=== PATIENT | male | born 1975 | race Caucasian/White ===

== ENCOUNTER 2019-03-19 15:29 | Emergency (ER) | payer OTHER, SELFPAY ==
[2019-03-19 15:32] VITALS: BP 163/98; PULSE 89; RESP 20; TEMP 36; O2SAT 98; BMI 36.5
[2019-03-19] MEDS: SODIUM CHLORIDE 0.9% 1,000 ML 1000 ML IV ×2 (16:15→17:51)
[2019-03-19 16:49] LABS: Add Manual Diff / Slide Review NO; Basophils Absolute Auto 0 /uL (0-100); Basophils Percent Auto 0.9 % (0-2); Eosinophils Absolute Auto 100 /uL (0-450); Eosinophils Percent Auto 2.7 % (2-4); Hematocrit 46.1 % (41-53); Hemoglobin 16.1 g/dL (13.5-17.5); Lymphocytes Absolute Auto 1300 /uL (1100-4500); Lymphocytes Percent Auto 27.4 % (25-40); Mean Corpuscular HGB Conc 34.9 % (30-36); Mean Corpuscular Hemoglobin 31.1 PG (26-34); Mean Corpuscular Volume 89.1 fL (80-100); Monocytes Absolute Auto 500 /uL (0-900); Monocytes Percent Auto 9.8 % (3-14); Neutrophils Absolute Auto 2900 /uL (1500-7000); Neutrophils Percent Auto 59.2 % (50-75); Platelet Count 196 X10^3/uL (150-400); Red Blood Cell Count 5.18 X10^6/uL (4.5-5.9); Red Cell Distribution Width 12.7 % (11.6-14.8); White Blood Cell Count 4.8 X10^3/uL (4.5-11.0)
[2019-03-19 16:54] LABS: Alanine Aminotransferase 55 IU/L (21-72); Albumin 4.5 g/dL (3.5-5.0); Albumin Globulin Ratio 1.6 (1.0-2.8); Alkaline Phosphatase 79 U/L (38-126); Aspartate Aminotransferase 43 IU/L (17-59); BUN Creatinine Ratio 21.3 (6-22); Bilirubin Total 0.6 mg/dL (0.2-1.3); Blood Urea Nitrogen 17 mg/dL (9-20); Calcium 9.3 mg/dL (8.4-10.2); Carbon Dioxide 23 mmol/L (22-32); Chloride 100 mmol/L (98-107); Estimated Glomerular Filt Rate > 60.0 mL/min (>60); Globulin 2.9 g/dL (1.7-4.1); HEMOLYSIS 46 (0-50); Potassium 4.4 mmol/L (3.4-5.1); Sodium 134 mmol/L (137-145); Total Protein 7.4 g/dL (6.3-8.2)
[2019-03-19 16:58] LABS: Ketones (Beta-Hydroxybutyrate) 1.35 mmol/L (<0.27)
[2019-03-19 17:13] LABS: Glucose 493 mg/dL (70-100)
[2019-03-19 17:16] LABS: HCO3 VBG 22 mmol/L (23-28); Oxygen Saturation VBG 80 % (70-75); PCO2 VBG 39.9 mmHg (45-50); PO2 VBG 46 mmHg (35-45); Total CO2 VBG 23 mmol/L (24-29); pH VBG 7.35 (7.33-7.43)
[2019-03-19 17:17] LABS: Hemoglobin A1C% w Est Avg Glu 10.3 % (4.0-6.0)
[2019-03-19 17:28] LABS: Procalcitonin 0.05 ng/mL (<0.5)
[2019-03-19 18:49] VITALS: BP 159/89; PULSE 64; RESP 15; O2SAT 98
--- NOTE | 2019-03-19 19:57 | ED.GENADULT ---
HPI - General Adult <NAT Lynn-BC - Last Filed: 03/19/19 20:01> General Chief complaint: Diabetic Problem Stated complaint: elevated blood sugar told to go to ER Time Seen by Provider: 03/19/19 15:53 Source: patient Mode of arrival: ambulatory Limitations: no limitations History of Present Illness HPI narrative: The patient is a 43-year-old male current smoker with history of obesity who presents with a chief complaint of polyuria and polydipsia. He is concerned he has diabetes. He was seen by primary care provider today, who checked his fingerstick any was above 500 so he was sent to the emergency department. He states that for the past few months he has been feeling overall poorly, fatigue, concerned about his increased thirst and increased urination. He states his father has a history of type 2 diabetes in use concerned that he has the same. He denies any chest pain, shortness of breath, nausea vomiting diarrhea. He denies any visual deficit. Related Data Home Medications Medication Instructions Recorded Confirmed Lutein 1 tab PO DAILY 03/19/19 03/20/19 acetaminophen 500 mg tablet 1,000 mg PO Q6H PRN 03/19/19 03/20/19 multivitamin tablet 1 tab PO DAILY 03/19/19 03/20/19 Previous Rx's Medication Instructions Recorded Glucometer #1 ea 03/20/19 Lancets #180 each 03/20/19 Test Strips #180 each 03/20/19 metformin 500 mg tablet 500 mg PO BID #60 tab 03/20/19 Allergies Allergy/AdvReac Type Severity Reaction Status Date / Time milk protein Allergy Intermediate slow, Uncoded 03/20/19 14:48 lethergic, GI upset MSG Allergy Intermediate slow, Uncoded 03/20/19 14:48 lethargic, migraine Review of Systems <MANASA LynnBC - Last Filed: 03/19/19 20:01> Review of Systems GENERAL: Denies chills, fatigue, malaise, fever, sweats. HEENT: Denies sinus pain, ear pain, sore throat, difficulty swallowing, dizziness. RESPIRATORY: Denies dyspnea, cough, wheezing, hemoptysis, sputum. CARDIOVASCULAR: Denies chest pain, palpitations, orthopnea, edema, GASTROINTESTINAL: See HPI : See HPI MUSCULOSKELETAL: denies weakness, joint pain, or bony pain SKIN: Denies rash, skin lesions, or other NEUROLOGIC: Denies weakness, headache, numbness, change in speech, confusion, seizures, incoordination. PSYCHIATRIC: No concerning psychosocial issues. 12 point review of systems is negative except for those stated above PFSH <ZENA Lynn - Last Filed: 03/19/19 20:01> Medical History (Updated 03/20/19 @ 16:54 by DUSTY Silva) Family history of diabetes mellitus (DM) (Acute) Social History Smoking Status: Current every day smoker (1/2 ppd ) Tobacco: How many years used: 15 quit status: considering quitting (Patient declines smoking cessation handout) second hand exposure: No alcohol intake: current (a couple shots of whiskey 1-2x week) substance use type: does not use Social History Smoking Status: Current every day smoker (1/2 ppd ) Tobacco: How many years used: 15 quit status: considering quitting (Patient declines smoking cessation handout) second hand exposure: No alcohol intake: current (a couple shots of whiskey 1-2x week) substance use type: does not use Exam <ZENA Lynn - Last Filed: 03/19/19 20:01> Narrative Exam Narrative: GENERAL: This is a well-nourished, well-developed patient, no acute distress HEAD: Atraumatic. Normocephalic. No temporal or scalp tenderness. EYES: Pupils equal round and reactive. Extraocular motions intact. No scleral icterus. No injection or drainage. ENT: Nose without bleeding, purulent drainage or septal hematoma. Throat without erythema, tonsillar hypertrophy or exudate. Uvula midline. Airway patent. NECK: Trachea midline. No JVD or lymphadenopathy. Supple, nontender, no meningeal signs. CARDIOVASCULAR: Regular rate and rhythm RESPIRATORY: Clear to auscultation. Breath sounds equal bilaterally. No wheezes, rales, or rhonchi. No cough. No increased respiratory effort. No accessory muscle use. GASTROINTESTINAL: Abdomen soft, non-tender, nondistended. No hepato-splenomegaly, or palpable masses. No guarding. Active bowel sounds all 4 quadrants EXTREMITIES: No clubbing, cyanosis, or edema. No joint tenderness, effusion, or edema noted. BACK: Nontender without deformity or crepitance. No flank tenderness. NEURO: AOx3. SKIN: No rash or erythema. Initial Vital Signs Initial Vital Signs: Vital Signs Temperature 96.8 F L 03/19/19 15:32 Pulse Rate 89 03/19/19 15:32 Respiratory Rate 20 03/19/19 15:32 Blood Pressure 163/98 H 03/19/19 15:32 Pulse Oximetry 98 03/19/19 15:32 <Megan Anderson DO - Last Filed: 03/20/19 18:45> Initial Vital Signs Initial Vital Signs: Vital Signs Temperature 96.8 F L 03/19/19 15:32 Pulse Rate 89 03/19/19 15:32 Respiratory Rate 20 03/19/19 15:32 Blood Pressure 163/98 H 03/19/19 15:32 Pulse Oximetry 98 03/19/19 15:32 Course <MANASA LynnBC - Last Filed: 03/19/19 20:01> Orders Ordered: Discontinued Medications Sodium Chloride (Normal Saline 0.9%) 1,000 mls @ 1,000 mls/hr IV BOLUS ONE Stop: 03/19/19 16:56 Last Infusion: 03/19/19 17:56 Dose: 0 mls/hr Admin: 03/19/19 16:15 Dose: 1,000 mls/hr Sodium Chloride (Normal Saline 0.9%) 1,000 mls @ 1,000 mls/hr IV BOLUS ONE Stop: 03/19/19 18:05 Last Infusion: 03/19/19 18:41 Dose: 0 mls/hr Admin: 03/19/19 17:51 Dose: 1,000 mls/hr Vital Signs - 8 hr 03/19/19 15:32 03/19/19 18:49 Temperature 96.8 F L Pulse Rate 89 64 Respiratory Rate 20 15 Blood Pressure 163/98 H Blood Pressure [Right Arm] 159/89 H Pulse Oximetry 98 98 <Megan Anderson DO - Last Filed: 03/20/19 18:45> Orders Ordered: Discontinued Medications Sodium Chloride (Normal Saline 0.9%) 1,000 mls @ 1,000 mls/hr IV BOLUS ONE Stop: 03/19/19 16:56 Last Infusion: 03/19/19 17:56 Dose: 0 mls/hr Admin: 03/19/19 16:15 Dose: 1,000 mls/hr Sodium Chloride (Normal Saline 0.9%) 1,000 mls @ 1,000 mls/hr IV BOLUS ONE Stop: 03/19/19 18:05 Last Infusion: 03/19/19 18:41 Dose: 0 mls/hr Admin: 03/19/19 17:51 Dose: 1,000 mls/hr Vital Signs - 8 hr 03/19/19 15:32 03/19/19 18:49 Temperature 96.8 F L Pulse Rate 89 64 Respiratory Rate 20 15 Blood Pressure 163/98 H Blood Pressure [Right Arm] 159/89 H Pulse Oximetry 98 98 Medical Decision Making <NAT Lynn-BC - Last Filed: 03/19/19 20:01> Lab Data Result diagrams: 03/19/19 16:25 03/19/19 16:25 Lab Results 03/19/19 03/19/19 03/19/19 Range/Units 16:25 16:25 16:25 WBC 4.8 (4.5-11.0) X10^3/uL RBC 5.18 (4.5-5.9) X10^6/uL Hgb 16.1 (13.5-17.5) g/dL Hct 46.1 (41-53) % MCV 89.1 (80-100) fL MCH 31.1 (26-34) PG MCHC 34.9 (30-36) % RDW 12.7 (11.6-14.8) % Plt Count 196 (150-400) X10^3/uL Neut % (Auto) 59.2 (50-75) % Lymph % (Auto) 27.4 (25-40) % Riley % (Auto) 9.8 (3-14) % Eos % (Auto) 2.7 (2-4) % Baso % (Auto) 0.9 (0-2) % Neut # (Auto) 2900 (4588-7605) /uL Lymph # (Auto) 1300 (4112-2382) /uL Riley # (Auto) 500 (0-900) /uL Eos # (Auto) 100 (0-450) /uL Baso # (Auto) 0 (0-100) /uL VBG pH (7.33-7.43) VBG pCO2 (45-50) mmHg VBG pO2 (35-45) mmHg VBG HCO3 (23-28) mmol/L VBG Total CO2 (24-29) mmol/L VBG O2 Saturation (70-75) % VBG Base Excess (0-4) mmol/L Sodium 134 L (137-145) mmol/L Potassium 4.4 (3.4-5.1) mmol/L Chloride 100 (98-107) mmol/L Carbon Dioxide 23 (22-32) mmol/L BUN 17 (9-20) mg/dL Creatinine 0.80 (0.66-1.25) mg/dL Estimated GFR > 60.0 (>60) mL/min BUN/Creatinine Ratio 21.3 (6-22) Glucose 493 H* (70-100) mg/dL Hemoglobin A1c (4.0-6.0) % Lactate (0.7-2.1) mmol/L Calcium 9.3 (8.4-10.2) mg/dL Total Bilirubin 0.6 (0.2-1.3) mg/dL AST 43 (17-59) IU/L ALT 55 (21-72) IU/L Alkaline Phosphatase 79 (38-126) U/L Total Protein 7.4 (6.3-8.2) g/dL Albumin 4.5 (3.5-5.0) g/dL Globulin 2.9 (1.7-4.1) g/dL Albumin/Globulin Ratio 1.6 (1.0-2.8) Procalcitonin 0.05 (<0.5) ng/mL Ketones 1.35 H (<0.27) mmol/L 03/19/19 03/19/19 03/19/19 Range/Units 16:25 16:25 16:47 WBC (4.5-11.0) X10^3/uL RBC (4.5-5.9) X10^6/uL Hgb (13.5-17.5) g/dL Hct (41-53) % MCV (80-100) fL MCH (26-34) PG MCHC (30-36) % RDW (11.6-14.8) % Plt Count (150-400) X10^3/uL Neut % (Auto) (50-75) % Lymph % (Auto) (25-40) % Riley % (Auto) (3-14) % Eos % (Auto) (2-4) % Baso % (Auto) (0-2) % Neut # (Auto) (9266-1227) /uL Lymph # (Auto) (3377-9306) /uL Riley # (Auto) (0-900) /uL Eos # (Auto) (0-450) /uL Baso # (Auto) (0-100) /uL VBG pH 7.35 (7.33-7.43) VBG pCO2 39.9 L (45-50) mmHg VBG pO2 46 H (35-45) mmHg VBG HCO3 22 L (23-28) mmol/L VBG Total CO2 23 L (24-29) mmol/L VBG O2 Saturation 80 H (70-75) % VBG Base Excess -3.0 L (0-4) mmol/L Sodium (137-145) mmol/L Potassium (3.4-5.1) mmol/L Chloride (98-107) mmol/L Carbon Dioxide (22-32) mmol/L BUN (9-20) mg/dL Creatinine (0.66-1.25) mg/dL Estimated GFR (>60) mL/min BUN/Creatinine Ratio (6-22) Glucose (70-100) mg/dL Hemoglobin A1c 10.3 H (4.0-6.0) % Lactate 1.0 (0.7-2.1) mmol/L Calcium (8.4-10.2) mg/dL Total Bilirubin (0.2-1.3) mg/dL AST (17-59) IU/L ALT (21-72) IU/L Alkaline Phosphatase (38-126) U/L Total Protein (6.3-8.2) g/dL Albumin (3.5-5.0) g/dL Globulin (1.7-4.1) g/dL Albumin/Globulin Ratio (1.0-2.8) Procalcitonin (<0.5) ng/mL Ketones (<0.27) mmol/L Point of Care Testing Glucose POC 320 Point of care testing: Point of Care Testing Glucose POC 320 MDM Narrative Medical decision making narrative: The patient is a 43-year-old male who presents with a chief complaint of polyuria and polydipsia. His initial blood sugar was over 500 an outside clinic, and over 400 in the emergency department. He was given 2 L of IV fluid. His lab work illustrate that he is not in DKA. He overall appears well and nontoxic. His blood sugar came down to 320. I did do a hemoglobin A1c to help facilitate PCP follow-up, which was elevated just above 10. I did start him on metformin at this time. I discussed the possible GI side effects. The patient states he is well wrist and diabetic diets, as his father is a recently diagnosed type 2 diabetic. I encourage close PCP follow-up, and he states he will call tomorrow. Discussed coming back to the ER for any acute concerns such as confusion, chest pain, shortness of breath etc. No questions or concerns upon discharge. <Megan Anderson, DO - Last Filed: 03/20/19 18:45> Lab Data Lab Results 03/19/19 03/19/19 03/19/19 Range/Units 16:25 16:25 16:25 WBC 4.8 (4.5-11.0) X10^3/uL RBC 5.18 (4.5-5.9) X10^6/uL Hgb 16.1 (13.5-17.5) g/dL Hct 46.1 (41-53) % MCV 89.1 (80-100) fL MCH 31.1 (26-34) PG MCHC 34.9 (30-36) % RDW 12.7 (11.6-14.8) % Plt Count 196 (150-400) X10^3/uL Neut % (Auto) 59.2 (50-75) % Lymph % (Auto) 27.4 (25-40) % Riley % (Auto) 9.8 (3-14) % Eos % (Auto) 2.7 (2-4) % Baso % (Auto) 0.9 (0-2) % Neut # (Auto) 2900 (9283-7374) /uL Lymph # (Auto) 1300 (9550-1667) /uL Riley # (Auto) 500 (0-900) /uL Eos # (Auto) 100 (0-450) /uL Baso # (Auto) 0 (0-100) /uL VBG pH (7.33-7.43) VBG pCO2 (45-50) mmHg VBG pO2 (35-45) mmHg VBG HCO3 (23-28) mmol/L VBG Total CO2 (24-29) mmol/L VBG O2 Saturation (70-75) % VBG Base Excess (0-4) mmol/L Sodium 134 L (137-145) mmol/L Potassium 4.4 (3.4-5.1) mmol/L Chloride 100 (98-107) mmol/L Carbon Dioxide 23 (22-32) mmol/L BUN 17 (9-20) mg/dL Creatinine 0.80 (0.66-1.25) mg/dL Estimated GFR > 60.0 (>60) mL/min BUN/Creatinine Ratio 21.3 (6-22) Glucose 493 H* (70-100) mg/dL Hemoglobin A1c (4.0-6.0) % Lactate (0.7-2.1) mmol/L Calcium 9.3 (8.4-10.2) mg/dL Total Bilirubin 0.6 (0.2-1.3) mg/dL AST 43 (17-59) IU/L ALT 55 (21-72) IU/L Alkaline Phosphatase 79 (38-126) U/L Total Protein 7.4 (6.3-8.2) g/dL Albumin 4.5 (3.5-5.0) g/dL Globulin 2.9 (1.7-4.1) g/dL Albumin/Globulin Ratio 1.6 (1.0-2.8) Procalcitonin 0.05 (<0.5) ng/mL Ketones 1.35 H (<0.27) mmol/L 03/19/19 03/19/19 03/19/19 Range/Units 16:25 16:25 16:47 WBC (4.5-11.0) X10^3/uL RBC (4.5-5.9) X10^6/uL Hgb (13.5-17.5) g/dL Hct (41-53) % MCV (80-100) fL MCH (26-34) PG MCHC (30-36) % RDW (11.6-14.8) % Plt Count (150-400) X10^3/uL Neut % (Auto) (50-75) % Lymph % (Auto) (25-40) % Riley % (Auto) (3-14) % Eos % (Auto) (2-4) % Baso % (Auto) (0-2) % Neut # (Auto) (9721-1764) /uL Lymph # (Auto) (8985-4971) /uL Riley # (Auto) (0-900) /uL Eos # (Auto) (0-450) /uL Baso # (Auto) (0-100) /uL VBG pH 7.35 (7.33-7.43) VBG pCO2 39.9 L (45-50) mmHg VBG pO2 46 H (35-45) mmHg VBG HCO3 22 L (23-28) mmol/L VBG Total CO2 23 L (24-29) mmol/L VBG O2 Saturation 80 H (70-75) % VBG Base Excess -3.0 L (0-4) mmol/L Sodium (137-145) mmol/L Potassium (3.4-5.1) mmol/L Chloride (98-107) mmol/L Carbon Dioxide (22-32) mmol/L BUN (9-20) mg/dL Creatinine (0.66-1.25) mg/dL Estimated GFR (>60) mL/min BUN/Creatinine Ratio (6-22) Glucose (70-100) mg/dL Hemoglobin A1c 10.3 H (4.0-6.0) % Lactate 1.0 (0.7-2.1) mmol/L Calcium (8.4-10.2) mg/dL Total Bilirubin (0.2-1.3) mg/dL AST (17-59) IU/L ALT (21-72) IU/L Alkaline Phosphatase (38-126) U/L Total Protein (6.3-8.2) g/dL Albumin (3.5-5.0) g/dL Globulin (1.7-4.1) g/dL Albumin/Globulin Ratio (1.0-2.8) Procalcitonin (<0.5) ng/mL Ketones (<0.27) mmol/L Point of Care Testing Glucose POC 320 Point of care testing: Point of Care Testing Glucose POC 320 Discharge Plan Departure Patient Disposition: Home Clinical Impression: Hyperglycemia due to type 2 diabetes mellitus 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 I have given you some dietary instructions and follow-up care recommendations. Please follow up with your PCP tomorrow. I have given you a work note. Please come back to the emergency department for any acute concerns such as confusion, chest pain shortness of breath etc Prescriptions: No Action acetaminophen [Tylenol Extra Strength] 500 mg tablet 1,000 mg PO Q6H PRN (Reason: pain) RF: 0 multivitamin tablet 1 tab PO DAILY RF: 0 Lutein 1 tab PO DAILY RF: 0 Glucometer Qty: 1 RF: 0 Lancets Qty: 180 RF: 0 Test Strips Qty: 180 RF: 0 metformin 500 mg tablet 500 mg PO BID Qty: 60 RF: 0 Referrals: Kena Watts ARNP [[facility]] - Stand Alone Forms: Work Release Note, Work/School Release <Megan Anderson DO - Last Filed: 03/20/19 18:45> Cosign ED Attending Natalieature Attestation: I was immediately available in the department for consultation. This documentation has been reviewed and I agree with assessment and plan. Supervised by Megan Anderson DO
--- NOTE | 2019-03-19 20:01 | ED_ITS ---
HPI - General Adult <NAT Lynn-BC - Last Filed: 03/19/19 20:01> General Chief complaint: Diabetic Problem Stated complaint: elevated blood sugar told to go to ER Time Seen by Provider: 03/19/19 15:53 Source: patient Mode of arrival: ambulatory Limitations: no limitations History of Present Illness HPI narrative: The patient is a 43-year-old male current smoker with history of obesity who presents with a chief complaint of polyuria and polydipsia. He is concerned he has diabetes. He was seen by primary care provider today, who checked his fingerstick any was above 500 so he was sent to the emergency department. He states that for the past few months he has been feeling overall poorly, fatigue, concerned about his increased thirst and increased urination. He states his father has a history of type 2 diabetes in use concerned that he has the same. He denies any chest pain, shortness of breath, nausea vomiting diarrhea. He denies any visual deficit. Related Data Home Medications Medication Instructions Recorded Confirmed Lutein 1 tab PO DAILY 03/19/19 03/20/19 acetaminophen 500 mg tablet 1,000 mg PO Q6H PRN 03/19/19 03/20/19 multivitamin tablet 1 tab PO DAILY 03/19/19 03/20/19 Previous Rx's Medication Instructions Recorded Glucometer #1 ea 03/20/19 Lancets #180 each 03/20/19 Test Strips #180 each 03/20/19 metformin 500 mg tablet 500 mg PO BID #60 tab 03/20/19 Allergies Allergy/AdvReac Type Severity Reaction Status Date / Time milk protein Allergy Intermediate slow, Uncoded 03/20/19 14:48 lethergic, GI upset MSG Allergy Intermediate slow, Uncoded 03/20/19 14:48 lethargic, migraine Review of Systems <MANASA LynnBC - Last Filed: 03/19/19 20:01> Review of Systems GENERAL: Denies chills, fatigue, malaise, fever, sweats. HEENT: Denies sinus pain, ear pain, sore throat, difficulty swallowing, dizziness. RESPIRATORY: Denies dyspnea, cough, wheezing, hemoptysis, sputum. CARDIOVASCULAR: Denies chest pain, palpitations, orthopnea, edema, GASTROINTESTINAL: See HPI : See HPI MUSCULOSKELETAL: denies weakness, joint pain, or bony pain SKIN: Denies rash, skin lesions, or other NEUROLOGIC: Denies weakness, headache, numbness, change in speech, confusion, seizures, incoordination. PSYCHIATRIC: No concerning psychosocial issues. 12 point review of systems is negative except for those stated above PFSH <ZENA Lynn - Last Filed: 03/19/19 20:01> Medical History (Updated 03/20/19 @ 16:54 by DUSTY Silva) Family history of diabetes mellitus (DM) (Acute) Social History Smoking Status: Current every day smoker (1/2 ppd ) Tobacco: How many years used: 15 quit status: considering quitting (Patient declines smoking cessation handout) second hand exposure: No alcohol intake: current (a couple shots of whiskey 1-2x week) substance use type: does not use Social History Smoking Status: Current every day smoker (1/2 ppd ) Tobacco: How many years used: 15 quit status: considering quitting (Patient declines smoking cessation handout) second hand exposure: No alcohol intake: current (a couple shots of whiskey 1-2x week) substance use type: does not use Exam <ZENA Lynn - Last Filed: 03/19/19 20:01> Narrative Exam Narrative: GENERAL: This is a well-nourished, well-developed patient, no acute distress HEAD: Atraumatic. Normocephalic. No temporal or scalp tenderness. EYES: Pupils equal round and reactive. Extraocular motions intact. No scleral icterus. No injection or drainage. ENT: Nose without bleeding, purulent drainage or septal hematoma. Throat without erythema, tonsillar hypertrophy or exudate. Uvula midline. Airway patent. NECK: Trachea midline. No JVD or lymphadenopathy. Supple, nontender, no m eningeal signs. CARDIOVASCULAR: Regular rate and rhythm RESPIRATORY: Clear to auscultation. Breath sounds equal bilaterally. No wheezes, rales, or rhonchi. No cough. No increased respiratory effort. No accessory muscle use. GASTROINTESTINAL: Abdomen soft, non-tender, nondistended. No hepato-spl enomegaly, or palpable masses. No guarding. Active bowel sounds all 4 quadrants EXTREMITIES: No clubbing, cyanosis, or edema. No joint tenderness, effusion, or edema noted. BACK: Nontender without deformity or crepitance. No flank tenderness. NEURO: AOx3. SKIN: No rash or erythema. Initial Vital Signs Initial Vital Signs: Vital Signs Temperature 96.8 F L 03/19/19 15:32 Pulse Rate 89 03/19/19 15:32 Respiratory Rate 20 03/19/19 15:32 Blood Pressure 163/98 H 03/19/19 15:32 Pulse Oximetry 98 03/19/19 15:32 <Megan Anderson DO - Last Filed: 03/20/19 18:45> Initial Vital Signs Initial Vital Signs: Vital Signs Temperature 96.8 F L 03/19/19 15:32 Pulse Rate 89 03/19/19 15:32 Respiratory Rate 20 03/19/19 15:32 Blood Pressure 163/98 H 03/19/19 15:32 Pulse Oximetry 98 03/19/19 15:32 Course <MANASA LynnBC - Last Filed: 03/19/19 20:01> Orders Ordered: Discontinued Medications Sodium Chloride (Normal Saline 0.9%) 1,000 mls @ 1,000 mls/hr IV BOLUS ONE Stop: 03/19/19 16:56 Last Infusion: 03/19/19 17:56 Dose: 0 mls/hr Admin: 03/19/19 16:15 Dose: 1,000 mls/hr Sodium Chloride (Normal Saline 0.9%) 1,000 mls @ 1,000 mls/hr IV BOLUS ONE Stop: 03/19/19 18:05 Last Infusion: 03/19/19 18:41 Dose: 0 mls/hr Admin: 03/19/19 17:51 Dose: 1,000 mls/hr Vital Signs - 8 hr 03/19/19 15:32 03/19/19 18:49 Temperature 96.8 F L Pulse Rate 89 64 Respiratory Rate 20 15 Blood Pressure 163/98 H Blood Pressure [Right Arm] 159/89 H Pulse Oximetry 98 98 <Megan Anderson DO - Last Filed: 03/20/19 18:45> Orders Ordered: Discontinued Medications Sodium Chloride (Normal Saline 0.9%) 1,000 mls @ 1,000 mls/hr IV BOLUS ONE Stop: 03/19/19 16:56 Last Infusion: 03/19/19 17:56 Dose: 0 mls/hr Admin: 03/19/19 16:15 Dose: 1,000 mls/hr Sodium Chloride (Normal Saline 0.9%) 1,000 mls @ 1,000 mls/hr IV BOLUS ONE Stop: 03/19/19 18:05 Last Infusion: 03/19/19 18:41 Dose: 0 mls/hr Admin: 03/19/19 17:51 Dose: 1,000 mls/hr Vital Signs - 8 hr 03/19/19 15:32 03/19/19 18:49 Temperature 96.8 F L Pulse Rate 89 64 Respiratory Rate 20 15 Blood Pressure 163/98 H Blood Pressure [Right Arm] 159/89 H Pulse Oximetry 98 98 Medical Decision Making <DALI LynnP-BC - Last Filed: 03/19/19 20:01> Lab Data Result diagrams: 03/19/19 16:25 03/19/19 16:25 Lab Results 03/19/19 03/19/19 03/19/19 Range/Units 16:25 16:25 16:25 WBC 4.8 (4.5-11.0) X10^3/uL RBC 5.18 (4.5-5.9) X10^6/uL Hgb 16.1 (13.5-17.5) g/dL Hct 46.1 (41-53) % MCV 89.1 (80-100) fL MCH 31.1 (26-34) PG MCHC 34.9 (30-36) % RDW 12.7 (11.6-14.8) % Plt Count 196 (150-400) X10^3/uL Neut % (Auto) 59.2 (50-75) % Lymph % (Auto) 27.4 (25-40) % [place] % (Auto) 9.8 (3-14) % Eos % (Auto) 2.7 (2-4) % Baso % (Auto) 0.9 (0-2) % Neut # (Auto) 2900 (1979-0957) /uL Lymph # (Auto) 1300 (3196-8117) /uL [place] # (Auto) 500 (0-900) /uL Eos # (Auto) 100 (0-450) /uL Baso # (Auto) 0 (0-100) /uL VBG pH (7.33-7.43) VBG pCO2 (45-50) mmHg VBG pO2 (35-45) mmHg VBG HCO3 (23-28) mmol/L VBG Total CO2 (24-29) mmol/L VBG O2 Saturation (70-75) % VBG Base Excess (0-4) mmol/L Sodium 134 L (137-145) mmol/L Potassium 4.4 (3.4-5.1) mmol/L Chloride 100 (98-107) mmol/L Carbon Dioxide 23 (22-32) mmol/L BUN 17 (9-20) mg/dL Creatinine 0.80 (0.66-1.25) mg/dL Estimated GFR > 60.0 (>60) mL/min BUN/Creatinine Ratio 21.3 (6-22) Glucose 493 H* (70-100) mg/dL Hemoglobin A1c (4.0-6.0) % Lactate (0.7-2.1) mmol/L Calcium 9.3 (8.4-10.2) mg/dL Total Bilirubin 0.6 (0.2-1.3) mg/dL AST 43 (17-59) IU/L ALT 55 (21-72) IU/L Alkaline Phosphatase 79 (38-126) U/L Total Protein 7.4 (6.3-8.2) g/dL Albumin 4.5 (3.5-5.0) g/dL Globulin 2.9 (1.7-4.1) g/dL Albumin/Globulin Ratio 1.6 (1.0-2.8) Procalcitonin 0.05 (<0.5) ng/mL Ketones 1.35 H (<0.27) mmol/L 03/19/19 03/19/19 03/19/19 Range/Units 16:25 16:25 16:47 WBC (4.5-11.0) X10^3/uL RBC (4.5-5.9) X10^6/uL Hgb (13.5-17.5) g/dL Hct (41-53) % MCV (80-100) fL MCH (26-34) PG MCHC (30-36) % RDW (11.6-14.8) % Plt Count (150-400) X10^3/uL Neut % (Auto) (50-75) % Lymph % (Auto) (25-40) % [place] % (Auto) (3-14) % Eos % (Auto) (2-4) % Baso % (Auto) (0-2) % Neut # (Auto) (3770-9902) /uL Lymph # (Auto) (1719-3443) /uL [place] # (Auto) (0-900) /uL Eos # (Auto) (0-450) /uL Baso # (Auto) (0-100) /uL VBG pH 7.35 (7.33-7.43) VBG pCO2 39.9 L (45-50) mmHg VBG pO2 46 H (35-45) mmHg VBG HCO3 22 L (23-28) mmol/L VBG Total CO2 23 L (24-29) mmol/L VBG O2 Saturation 80 H (70-75) % VBG Base Excess -3.0 L (0-4) mmol/L Sodium (137-145) mmol/L Potassium (3.4-5.1) mmol/L Chloride (98-107) mmol/L Carbon Dioxide (22-32) mmol/L BUN (9-20) mg/dL Creatinine (0.66-1.25) mg/dL Estimated GFR (>60) mL/min BUN/Creatinine Ratio (6-22) Glucose (70-100) mg/dL Hemoglobin A1c 10.3 H (4.0-6.0) % Lactate 1.0 (0.7-2.1) mmol/L Calcium (8.4-10.2) mg/dL Total Bilirubin (0.2-1.3) mg/dL AST (17-59) IU/L ALT (21-72) IU/L Alkaline Phosphatase (38-126) U/L Total Protein (6.3-8.2) g/dL Albumin (3.5-5.0) g/dL Globulin (1.7-4.1) g/dL Albumin/Globulin Ratio (1.0-2.8) Procalcitonin (<0.5) ng/mL Ketones (<0.27) mmol/L Point of Care Testing Glucose POC 320 Point of care testing: Point of Care Testing Glucose POC 320 MDM Narrative Medical decision making narrative: The patient is a 43-year-old male who presents with a chief complaint of polyuria and polydipsia. His initial blood sugar was over 500 an outside clinic, and over 400 in the emergency department. He was given 2 L of IV fluid. His lab work illustrate that he is not in DKA. He overall appears well and nontoxic. His blood sugar came down to 320. I did do a hemoglobin A1c to help facilitate PCP follow-up, which was elevated just above 10. I did start him on metformin at this time. I discussed the possible GI side effects. The patient states he is well wrist and diabetic diets, as his father is a recently diagnosed type 2 diabetic. I encourage close PCP follow- up, and he states he will call tomorrow. Discussed coming back to the ER for any acute concerns such as confusion, chest pain, shortness of breath etc. No questions or concerns upon discharge. <Megan Anderson, DO - Last Filed: 03/20/19 18:45> Lab Data Lab Results 03/19/19 03/19/19 03/19/19 Range/Units 16:25 16:25 16:25 WBC 4.8 (4.5-11.0) X10^3/uL RBC 5.18 (4.5-5.9) X10^6/uL Hgb 16.1 (13.5-17.5) g/dL Hct 46.1 (41-53) % MCV 89.1 (80-100) fL MCH 31.1 (26-34) PG MCHC 34.9 (30-36) % RDW 12.7 (11.6-14.8) % Plt Count 196 (150-400) X10^3/uL Neut % (Auto) 59.2 (50-75) % Lymph % (Auto) 27.4 (25-40) % [place] % (Auto) 9.8 (3-14) % Eos % (Auto) 2.7 (2-4) % Baso % (Auto) 0.9 (0-2) % Neut # (Auto) 2900 (2832-3563) /uL Lymph # (Auto) 1300 (1443-6599) /uL [place] # (Auto) 500 (0-900) /uL Eos # (Auto) 100 (0-450) /uL Baso # (Auto) 0 (0-100) /uL VBG pH (7.33-7.43) VBG pCO2 (45-50) mmHg VBG pO2 (35-45) mmHg VBG HCO3 (23-28) mmol/L VBG Total CO2 (24-29) mmol/L VBG O2 Saturation (70-75) % VBG Base Excess (0-4) mmol/L Sodium 134 L (137-145) mmol/L Potassium 4.4 (3.4-5.1) mmol/L Chloride 100 (98-107) mmol/L Carbon Dioxide 23 (22-32) mmol/L BUN 17 (9-20) mg/dL Creatinine 0.80 (0.66-1.25) mg/dL Estimated GFR > 60.0 (>60) mL/min BUN/Creatinine Ratio 21.3 (6-22) Glucose 493 H* (70-100) mg/dL Hemoglobin A1c (4.0-6.0) % Lactate (0.7-2.1) mmol/L Calcium 9.3 (8.4-10.2) mg/dL Total Bilirubin 0.6 (0.2-1.3) mg/dL AST 43 (17-59) IU/L ALT 55 (21-72) IU/L Alkaline Phosphatase 79 (38-126) U/L Total Protein 7.4 (6.3-8.2) g/dL Albumin 4.5 (3.5-5.0) g/dL Globulin 2.9 (1.7-4.1) g/dL Albumin/Globulin Ratio 1.6 (1.0-2.8) Procalcitonin 0.05 (<0.5) ng/mL Ketones 1.35 H (<0.27) mmol/L 03/19/19 03/19/19 03/19/19 Range/Units 16:25 16:25 16:47 WBC (4.5-11.0) X10^3/uL RBC (4.5-5.9) X10^6/uL Hgb (13.5-17.5) g/dL Hct (41-53) % MCV (80-100) fL MCH (26-34) PG MCHC (30-36) % RDW (11.6-14.8) % Plt Count (150-400) X10^3/uL Neut % (Auto) (50-75) % Lymph % (Auto) (25-40) % [place] % (Auto) (3-14) % Eos % (Auto) (2-4) % Baso % (Auto) (0-2) % Neut # (Auto) (0765-7763) /uL Lymph # (Auto) (9712-8864) /uL [place] # (Auto) (0-900) /uL Eos # (Auto) (0-450) /uL Baso # (Auto) (0-100) /uL VBG pH 7.35 (7.33-7.43) VBG pCO2 39.9 L (45-50) mmHg VBG pO2 46 H (35-45) mmHg VBG HCO3 22 L (23-28) mmol/L VBG Total CO2 23 L (24-29) mmol/L VBG O2 Saturation 80 H (70-75) % VBG Base Excess -3.0 L (0-4) mmol/L Sodium (137-145) mmol/L Potassium (3.4-5.1) mmol/L Chloride (98-107) mmol/L Carbon Dioxide (22-32) mmol/L BUN (9-20) mg/dL Creatinine (0.66-1.25) mg/dL Estimated GFR (>60) mL/min BUN/Creatinine Ratio (6-22) Glucose (70-100) mg/dL Hemoglobin A1c 10.3 H (4.0-6.0) % Lactate 1.0 (0.7-2.1) mmol/L Calcium (8.4-10.2) mg/dL Total Bilirubin (0.2-1.3) mg/dL AST (17-59) IU/L ALT (21-72) IU/L Alkaline Phosphatase (38-126) U/L Total Protein (6.3-8.2) g/dL Albumin (3.5-5.0) g/dL Globulin (1.7-4.1) g/dL Albumin/Globulin Ratio (1.0-2.8) Procalcitonin (<0.5) ng/mL Ketones (<0.27) mmol/L Point of Care Testing Glucose POC 320 Point of care testing: Point of Care Testing Glucose POC 320 Discharge Plan Departure Patient Disposition: Home Clinical Impression: Hyperglycemia due to type 2 diabetes mellitus Qualifiers: Diabetes mellitus rn long term care insulin use: without custodial use Qualified C ode(s): E11.65 - Type 2 diabetes mellitus with hyperglycemia Discharge Date/Time: 03/19/19 19:49 Interventions: ED Discharge Assessment Last Done: 03/19/19 19:48 Instructions: DI for Diabetes Type 2 Activity Restrictions/Additional Instructions: Your lab work came back concerning for elevated blood sugar indicating diabetes. I have given you some dietary instructions and follow-up care recommendations. Please follow up with your PCP tomorrow. I have given you a work note. Please come back to the emergency department for any acute concerns such as conf usion, chest pain shortness of breath etc Prescriptions: No Action acetaminophen [Tylenol Extra Strength] 500 mg tablet 1,000 mg PO Q6H PRN (Reason: pain) RF: 0 multivitamin tablet 1 tab PO DAILY RF: 0 Lutein 1 tab PO DAILY RF: 0 Glucometer Qty: 1 RF: 0 Lancets Qty: 180 RF: 0 Test Strips Qty: 180 RF: 0 metformin 500 mg tablet 500 mg PO BID Qty: 60 RF: 0 Referrals: Kena Watts ARNP [[employer]] - Stand Alone Forms: Work Release Note, Work/School Release <Megan Anderson DO - Last Filed: 03/20/19 18:45> Cosign ED Attending Natalieature Attestation: I was immediately available in the department for consultation. This documentation has been reviewed and I agree with assessment and plan. Supervised by Megan Anderson DO
== END 2019-03-19 19:49 | disposition home or self-care (01) ==
PROVIDERS: Emergency Provider Nurse Practitioner Family
DX: E11.65 Type 2 diabetes mellitus with hyperglycemia (principal)
CPT/HCPCS: 36591; 80053; 82009; 82805; 82962; 83036; 83605; 84145; 85025; 96360; 96361; 99283; 99284

== ENCOUNTER → 2019-06-11 14:48 | Outpatient (CLI) | payer OTHER, SELFPAY ==
--- NOTE | 2019-06-11 14:52 | DI.RAD.S_ITS ---
PROCEDURE: XR HIP W PEL IF DONE LT MIN 4V INDICATIONS: right hip pain TECHNIQUE: AP pelvis with lateral view(s) of the bilateral hip(s). COMPARISON: None. FINDINGS: Bones: No fractures or dislocations. Moderate left and moderate-severe right bilateral hip joint degenerative change with marginal osteophyte formation. Pelvic ring appears intact. No suspicious bony lesions. Soft tissues: The visualized bowel gas pattern is normal. No suspicious soft tissue calcifications. IMPRESSION: Moderate left and moderate-severe right bilateral hip joint osteoarthrosis. Dictated by: Og Marley M.D. on 06/11/2019 at 16:05 Approved by: Og Marley M.D. on 06/11/2019 at 16:06
--- NOTE | 2019-06-11 14:52 | DI.RAD.S_ITS ---
PROCEDURE: XR LUMBAR SPINE MIN 4V INDICATIONS: right lower back pain TECHNIQUE: 4 views of the lumbar spine were acquired. COMPARISON: None. FINDINGS: Bones: 5 nonrib-bearing vertebrae are present. There is normal bony alignment. No vertebral body compression fractures. No suspicious bony lesions. Minimal multilevel lumbar spondylitic changes most pronounced in the mid and lower lumbar spine. Soft tissues: Overlying bowel gas pattern is normal. No suspicious soft tissue calcifications. Oblique images: No pars defects. IMPRESSION: Minimal multilevel lumbar spondylosis. Dictated by: Og Marley M.D. on 06/11/2019 at 16:07 Approved by: Og Marley M.D. on 06/11/2019 at 16:08
== END ==
PROVIDERS: PCP Nurse Practitioner Family; Visit Provider Nurse Practitioner Family
DX: M25.551 Pain in right hip (principal); M16.0 Bilateral primary osteoarthritis of hip; M54.41 Lumbago with sciatica, right side; G89.29 Other chronic pain
CPT/HCPCS: 72110; 73522

== ENCOUNTER → 2020-05-03 10:19 | Outpatient (CLI) | payer OTHER, SELFPAY ==
[2020-05-04 07:49] LABS: COVID19 Sendout Not Detected (Not Detect)
== END ==
PROVIDERS: PCP Nurse Practitioner Family; Visit Provider Physician Assistant
DX: Z11.59 Encounter for screening for other viral diseases (principal)
CPT/HCPCS: 87635

== ENCOUNTER → 2022-07-12 13:52 | Outpatient (CLI) | payer BC, SELFPAY ==
[2022-07-12 14:47] LABS: Hemoglobin A1C% w Est Avg Glu 6.4 % (4.0-6.0)
[2022-07-12 15:05] LABS: Erythrocyte Sedimentation Rate 1 MM/HR (0-15)
[2022-07-12 15:21] LABS: Alanine Aminotransferase 40 IU/L (<50); Albumin 4.8 g/dL (3.5-5.0); Albumin Globulin Ratio 1.8 (1.0-2.8); Alkaline Phosphatase 62 U/L (38-126); Aspartate Aminotransferase 32 IU/L (17-59); BUN Creatinine Ratio 16.2 (6-22); Bilirubin Total 0.5 mg/dL (0.2-1.3); Blood Urea Nitrogen 18 mg/dL (9-20); Calcium 9.5 mg/dL (8.4-10.2); Carbon Dioxide 26 mmol/L (22-32); Chloride 105 mmol/L (98-107); Cholesterol 172 mg/dL (140-199); Estimated Glomerular Filt Rate > 60 mL/min (>60); Globulin 2.6 g/dL (1.7-4.1); Glucose 97 mg/dL (70-100); HDL Cholesterol 41 mg/dL (40-60); HEMOLYSIS < 15 (0-50); LDL Cholesterol Calculated 72 mg/dL (<100); Potassium 4.8 mmol/L (3.4-5.1); Sodium 141 mmol/L (137-145); Total Protein 7.4 g/dL (6.3-8.2); Triglycerides 295 mg/dL (35-150)
[2022-07-12 15:22] LABS: Uric Acid 7.8 mg/dL (3.5-8.5)
[2022-07-12 15:52] LABS: TSH w/ Reflex to FT4 0.78 uIU/mL (0.47-4.68)
[2022-07-12 16:41] LABS: HIV 1 & 2 Ab/Ag 4th Gen Combo NEGATIVE (NEGATIVE); Hep C Virus Ab w/Reflex Quant NEGATIVE s/c (NEGATIVE)
[2022-07-12 16:50] LABS: Urine N gonorrhoeae NOT DETECTED
[2022-07-12 16:51] LABS: Urine Chlamydia NOT DETECTED
[2022-07-15 18:11] LABS: CCP Antibodies IgG/IgA 2 units (0-19)
[2022-07-16 18:14] LABS: ANA Screen, IFA Negative (.)
== END ==
PROVIDERS: PCP Family Medicine; Referring Provider Family Medicine; Visit Provider Family Medicine
DX: E11.9 Type 2 diabetes mellitus without complications (principal); I10 Essential (primary) hypertension; M10.9 Gout, unspecified; M25.551 Pain in right hip; R79.89 Other specified abnormal findings of blood chemistry
CPT/HCPCS: 36415; 80053; 80061; 83036; 84443; 84550; 85651; 86038; 86200; 86803; 87389; 87491; 87591

== ENCOUNTER → 2022-11-08 15:59 | Outpatient (CLI) | payer BC, SELFPAY ==
--- NOTE | 2022-11-08 16:04 | DI.RAD.S_ITS ---
PROCEDURE: XR HIP W PEL IF DONE RT 2V INDICATIONS: Hip pain TECHNIQUE: AP pelvis with lateral view(s) of the right hip(s). COMPARISON: [facility], , XR HIP W PEL IF DONE HAIDER 3TO4V, 06/11/2019, 14:51. FINDINGS: Bones: No fractures or dislocations. Pelvic ring appears intact. No suspicious bony lesions. Progressive severe right hip degenerative arthritis with osteophytosis and increased joint space loss. There is also moderate to severe left hip degenerative arthritis. Soft tissues: The visualized bowel gas pattern is normal. No suspicious soft tissue calcifications. IMPRESSION: Progressive, severe right hip degenerative arthritis. Dictated by: Cecilio Easton M.D. on 11/08/2022 at 17:26 Approved by: Cecilio Easton M.D. on 11/08/2022 at 17:26
--- NOTE | 2022-11-08 16:04 | DI.RAD.S_ITS ---
PROCEDURE: XR LUMBAR SPINE 2-3V INDICATIONS: Back pain TECHNIQUE: 3 views of the lumbar spine were acquired. COMPARISON: [facility], , XR LUMBAR SPINE MIN 4V, 06/11/2019, 14:54. FINDINGS: Bones: 5 [id number] vertebrae are present. There is normal bony alignment. No vertebral body compression fractures. No suspicious bony lesions. Lower lumbar facet arthropathy. Soft tissues: Overlying bowel gas pattern is normal. No suspicious soft tissue calcifications. IMPRESSION: Lower lumbar facet arthropathy. No evidence acute bony abnormality of the lumbar spine. Dictated by: Cecilio Easton M.D. on 11/08/2022 at 17:27 Approved by: Cecilio Easton M.D. on 11/08/2022 at 17:28
== END ==
PROVIDERS: PCP Family Medicine; Referring Provider Family Medicine; Visit Provider Family Medicine
DX: M25.551 Pain in right hip (principal); M54.50 Low back pain, unspecified; M54.9 Dorsalgia, unspecified; M16.11 Unilateral primary osteoarthritis, right hip
CPT/HCPCS: 72100; 73502

== ENCOUNTER 2024-04-05 13:26 | Inpatient (IN) | payer BC, SELFPAY ==
[2024-04-05] VITALS (28 sets, daily range): BP systolic 133–206; BP diastolic 82–110; PULSE 70–94; RESP 12–20; TEMP 36.1–37; O2SAT 92–99; BMI 34.0
[2024-04-05] MEDS: ONDANSETRON 4 MG/2 ML INJ IV (13:53)
[2024-04-05 13:59] LABS: Add Manual Diff / Slide Review NO; Basophils Absolute Auto 100 /uL (0-100); Basophils Percent Auto 0.4 % (0-2); Eosinophils Absolute Auto 0 /uL (0-450); Eosinophils Percent Auto 0.1 % (2-4); Hematocrit 56.7 % (41-53); Hemoglobin 19.5 g/dL (13.5-17.5); Lymphocytes Absolute Auto 1100 /uL (1100-4500); Lymphocytes Percent Auto 6.2 % (25-40); Mean Corpuscular HGB Conc 34.4 % (30-36); Mean Corpuscular Hemoglobin 30.5 PG (26-34); Mean Corpuscular Volume 88.7 fL (80-100); Monocytes Absolute Auto 1500 /uL (0-900); Monocytes Percent Auto 8.4 % (3-14); Neutrophils Absolute Auto 14900 /uL (1500-7000); Neutrophils Percent Auto 84.9 % (50-75); Platelet Count 223 X10^3/uL (150-400); Red Blood Cell Count 6.39 X10^6/uL (4.5-5.9); Red Cell Distribution Width 14.4 % (11.6-14.8); White Blood Cell Count 17.5 X10^3/uL (4.5-11.0)
[2024-04-05 14:06] LABS: Alanine Aminotransferase 31 IU/L (<50); Albumin 4.8 g/dL (3.5-5.0); Albumin Globulin Ratio 1.5 (1.0-2.8); Alkaline Phosphatase 54 U/L (38-126); Aspartate Aminotransferase 32 IU/L (17-59); BUN Creatinine Ratio 20.2 (6-22); Bilirubin Total 1.1 mg/dL (0.2-1.3); Blood Urea Nitrogen 20 mg/dL (9-20); Calcium 9.6 mg/dL (8.4-10.2); Carbon Dioxide 28 mmol/L (22-32); Chloride 91 mmol/L (98-107); Estimated Glomerular Filt Rate > 60 mL/min (>60); Globulin 3.3 g/dL (1.7-4.1); Glucose 171 mg/dL (70-100); HEMOLYSIS 18 (0-50); Lipase 97 U/L (23-300); Potassium 4.2 mmol/L (3.4-5.1); Sodium 131 mmol/L (137-145); Total Protein 8.1 g/dL (6.3-8.2)
--- NOTE | 2024-04-05 14:35 | ED.ABDPAIN ---
HPI - Abdominal Pain General Chief Complaint: Abdominal Pain Stated Complaint: Stomach pain, Chills , vomiting Time Seen by Provider: 04/05/24 13:56 Source: patient Mode of arrival: Ambulatory History of Present Illness HPI narrative: 48-year-old male with no prior abdominal pelvic surgeries, gluten intolerance, no recent known gluten exposure, has 2 days duration of supraumbilical area discomfort, multiple episodes of nonbloody emesis, increasing abdominal distention, last bowel movement yesterday without black or red color, no hard stools, no change in stool caliber. No emma-colored stools. No recent antibiotics. No history of prior episodes colitis, diverticulitis, Crohn's disease, ulcerative colitis. He has not had prior endoscopy, no known gastritis, peptic ulcer disease, esophagitis. He has not been coughing. Denies cough fevers chills shortness of breath. He denies painful urination or frequency of urination. Related Data Home Medications Medication Instructions Recorded Confirmed Lutein 1 tab PO DAILY 03/19/19 08/09/23 acetaminophen 500 mg tablet 1,000 mg PO Q6H PRN pain 03/19/19 08/09/23 (Tylenol Extra Strength) multivitamin 1 tab PO DAILY 03/19/19 08/09/23 Previous Rx's Medication Instructions Recorded Glucometer #1 ea 03/20/19 diclofenac sodium 1 % topical gel 2 gram topical QID #100 grams 06/11/19 blood pressure kit-extra large #1 ea 06/26/21 blood sugar diagnostic See Rx Instructions .Route 02/28/23 .COMPLEX #100 ea blood-glucose meter #1 ea 02/28/23 lancets 33 gauge See Rx Instructions .Route 02/28/23 .COMPLEX #100 ea metformin 1,000 mg tablet 1,000 mg PO BID #180 tabs 07/30/23 1 mL syringe (disp) #1 ea 08/09/23 needle (disp) 23 gauge 23 gauge x #100 ea 08/09/23 1 1/2 cyclobenzaprine 10 mg tablet 10 mg PO BEDTIME PRN muscle spasm 10/29/23 #90 tabs amlodipine 2.5 mg tablet 2.5 mg PO BEDTIME #90 tabs 11/04/23 lisinopril 20 mg tablet 20 mg PO DAILY #90 tabs 12/16/23 meloxicam 15 mg tablet 15 mg PO DAILY #30 tabs 01/31/24 testosterone cypionate 100 mg/mL 50 mg (0.5 mL) IM QWEEK #10 mL 03/17/24 intramuscular oil Allergies Allergy/AdvReac Type Severity Reaction Status Date / Time gluten Allergy Severe arthritis Verified 04/05/24 13:37 dulaglutide [From Trulicity] AdvReac Intermediate hives, Verified 04/05/24 13:37 thyroid swelling, sinus problems, congestion. milk protein Allergy Intermediate slow, Uncoded 08/09/23 16:12 lethergic, GI upset MSG Allergy Intermediate slow, Uncoded 08/09/23 16:12 lethargic, migraine Review of Systems Review of Systems Narrative: see HPI Patient History Medical History Well adult exam Preventative health care Low testosterone in male Gluten intolerance Essential hypertension (04/2021) Elevated ALT measurement Right hip pain (2018) Lumbago with sciatica, right side (2018) Chicken pox Gout (~2009) Family history of diabetes mellitus (DM) Surgical History Anesthesia History of knee surgery (~2015) Fracture (~2009) Family History Father Diabetes mellitus Hypertension Grandfather Cancer Grandmother Cancer Grandmother Stroke Social History Smoking Status: Former smoker Tobacco: How many years used: 15 quit status: considering quitting (Patient declines smoking cessation handout) second hand exposure: No alcohol intake: current (a couple shots of whiskey 1-2x week) substance use type: does not use Smoking Status: Former smoker Substance Use Type: does not use Exam Narrative Exam Narrative: GENERAL: Well-developed patient, in mild distress. HEAD: Atraumatic. Normocephalic. EYES: Pupils equal round and reactive. Extraocular motions intact. No scleral icterus. No injection or drainage. ENT: Nose without bleeding, purulent drainage. Throat without erythema, tonsillar hypertrophy or exudate. Airway patent. NECK: Trachea midline. Non tender CARDIOVASCULAR: Regular rate and rhythm without murmurs, gallops, or rubs. RESPIRATORY: Clear to auscultation. Breath sounds equal bilaterally. No wheezes, rales, or rhonchi. GASTROINTESTINAL: Abdominal distention, small umbilical hernia is present and was easily reducible without obvious discomfort. He had no specific tenderness in the right lower quadrant, left lower quadrant, periumbilical area, right upper quadrant, left upper quadrant. He had no obvious inguinal hernias or other ventral hernias. EXTREMITIES: No edema or joint tenderness. BACK: Nontender without deformity or crepitance. No flank tenderness. NEURO: AOx3. Motor function grossly nonfocal SKIN: No rash or erythema of visible areas Initial Vital Signs Initial Vital Signs: Vital Signs Temperature 97.0 F L 04/05/24 13:37 Pulse Rate 83 04/05/24 13:37 Respiratory Rate 16 04/05/24 13:37 Blood Pressure 177/102 H 04/05/24 13:37 Pulse Oximetry 99 04/05/24 13:37 Oxygen Delivery Method Room Air 04/05/24 13:37 Course Orders Ordered: ED Orders 04/05/24 13:47 Complete Blood Count AUTO DIFF Stat Comprehensive Metabolic Panel Stat Lactate (Lactic Acid) Stat Lipase Stat 04/05/24 15:29 CT abdomen pelvis w con Stat 04/05/24 15:30 GI Panel (Film Array) Stat 04/05/24 15:36 Urine Microscopic Stat 04/05/24 17:24 XR chest 1V Stat 04/05/24 17:35 Education, smoking cessation ONGOING 04/06/24 05:00 BMP [Basic Metabolic Panel] DAILY Complete Blood Count AUTO DIFF DAILY 04/07/24 05:00 BMP [Basic Metabolic Panel] DAILY Complete Blood Count AUTO DIFF DAILY 04/08/24 05:00 BMP [Basic Metabolic Panel] DAILY Complete Blood Count AUTO DIFF DAILY Acetaminophen (Acetaminophen 325 Mg Tablet) 650 mg PO Q6H PRN PRN Reason: Fever/Mild Pain (1-3) Benzocaine/Butamben/Tetracaine HCl (Tetracaine/Benzocaine/Butamben (Cetacaine) Bottle) 1 spray TOP PRN PRN PRN Reason: Sore Throat Lactated Ringer's (Lactated Ringers) 1,000 mls @ 100 mls/hr IV CONT VASILIY Dextrose (D10w) 100 mls @ 1,200 mls/hr IV PRN PRN PRN Reason: Hypoglycemia Lactated Ringer's (Lactated Ringers) 1,000 mls @ 42 mls/hr IV CONT VASILIY Last Admin: 04/05/24 19:06 Dose: 42 mls/hr Documented By: HF Insulin Human Lispro (Insulin Lispro 100 Unit/Ml 3ml Vial) 0 unit SUBCUT ACHS [facility]; Protocol Ketorolac Tromethamine (Ketorolac 30 Mg/Ml Vial) 30 mg IV Q6HR PRN PRN Reason: Pain, Moderate (4-6) Metoprolol Tartrate (Metoprolol Tartrate 5 Mg/5 Ml Inj) 5 mg IV Q4H PRN PRN Reason: Q4 hr for SBP >160. Hold for SBP <120 and Hr <60 Naloxone HCl (Naloxone 0.4 Mg/Ml Vial) 0.2 mg IV Q2MIN PRN PRN Reason: Opiate Reversal Ondansetron HCl (Ondansetron 4 Mg/2 Ml Inj) 4 mg IV NOW PRN PRN Reason: Nausea And Vomiting Last Admin: 04/05/24 13:53 Dose: 4 mg Documented By: SB Ondansetron HCl (Ondansetron 4 Mg Odt) 4 mg PO NOW PRN PRN Reason: Nausea And Vomiting Discontinued Medications Hydromorphone HCl (Hydromorphone 0.5 Mg Inj) 0.5 mg IV NOW ONE Stop: 04/05/24 14:39 Last Admin: 04/05/24 14:46 Dose: 0.5 mg Documented By: SPF Sodium Chloride (Normal Saline 0.9%) 1,000 mls @ 1,000 mls/hr IV BOLUS ONE Stop: 04/05/24 15:40 Last Infusion: 04/05/24 17:00 Dose: Infused Documented By: Admin: 04/05/24 14:43 Dose: 1,000 mls/hr Documented By: SPF Lactated Ringer's (Lactated Ringers) 1,000 mls @ 1,000 mls/hr IV BOLUS ONE Stop: 04/05/24 17:42 Last Admin: 04/05/24 17:34 Dose: 1,000 mls/hr Documented By: SPF Piperacillin Sod/Tazobactam (Sod 4.5 gm/ Sodium Chloride) 100 mls @ 200 mls/hr IV NOW ONE Stop: 04/05/24 18:47 Lorazepam (Lorazepam 2 Mg/Ml Inj) 1 mg IV NOW ONE Stop: 04/05/24 17:03 Last Admin: 04/05/24 17:07 Dose: 1 mg Documented By: SPF Vital Signs Vital signs: Vital Signs - 8 hr 04/05/24 13:37 04/05/24 14:17 04/05/24 14:21 Temperature 97.0 F L Pulse Rate 83 78 Respiratory Rate 16 Blood Pressure 177/102 H 179/98 H Pulse Oximetry 99 97 Oxygen Delivery Method Room Air 04/05/24 14:21 04/05/24 14:30 04/05/24 14:30 Temperature Pulse Rate 79 75 Respiratory Rate Blood Pressure 187/103 H Pulse Oximetry 98 95 Oxygen Delivery Method Room Air 04/05/24 15:00 04/05/24 15:00 04/05/24 15:22 Temperature Pulse Rate 74 76 Respiratory Rate Blood Pressure 190/98 H Pulse Oximetry 96 98 Oxygen Delivery Method Room Air 04/05/24 15:22 04/05/24 15:30 04/05/24 15:30 Temperature Pulse Rate 74 Respiratory Rate Blood Pressure 184/106 H 179/97 H Pulse Oximetry 98 Oxygen Delivery Method Room Air 04/05/24 16:00 04/05/24 16:30 04/05/24 17:00 Temperature Pulse Rate 70 78 82 Respiratory Rate Blood Pressure Pulse Oximetry 95 96 Oxygen Delivery Method Room Air 04/05/24 17:30 04/05/24 17:34 04/05/24 17:34 Temperature Pulse Rate 89 84 Respiratory Rate Blood Pressure 178/95 H Pulse Oximetry 95 96 Oxygen Delivery Method Room Air 04/05/24 18:00 Temperature Pulse Rate 89 Respiratory Rate Blood Pressure Pulse Oximetry 97 Oxygen Delivery Method Room Air MDM - Abdominal Pain Lab Data Attestation: I reviewed the patient's lab results. 04/05/24 13:47 04/05/24 13:47 Labs: Lab Results 04/05/24 04/05/24 Range/Units 13:47 15:36 WBC 17.5 H (4.5-11.0) X10^3/uL RBC 6.39 H (4.5-5.9) X10^6/uL Hgb 19.5 H (13.5-17.5) g/dL Hct 56.7 H (41-53) % MCV 88.7 (80-100) fL MCH 30.5 (26-34) PG MCHC 34.4 (30-36) % RDW 14.4 (11.6-14.8) % Plt Count 223 (150-400) X10^3/uL Neut % (Auto) 84.9 H (50-75) % Lymph % (Auto) 6.2 L (25-40) % [place] % (Auto) 8.4 (3-14) % Eos % (Auto) 0.1 L (2-4) % Baso % (Auto) 0.4 (0-2) % Neut # (Auto) 97719 H (2846-0892) /uL Lymph # (Auto) 1100 (0046-2749) /uL [place] # (Auto) 1500 H (0-900) /uL Eos # (Auto) 0 (0-450) /uL Baso # (Auto) 100 (0-100) /uL Sodium 131 L (137-145) mmol/L Potassium 4.2 (3.4-5.1) mmol/L Chloride 91 L (98-107) mmol/L Carbon Dioxide 28 (22-32) mmol/L BUN 20 (9-20) mg/dL Creatinine 0.99 (0.66-1.25) mg/dL Estimated GFR > 60 (>60) mL/min BUN/Creatinine Ratio 20.2 (6-22) Glucose 171 H (70-100) mg/dL Lactate 2.1 (0.7-2.1) mmol/L Calcium 9.6 (8.4-10.2) mg/dL Total Bilirubin 1.1 (0.2-1.3) mg/dL AST 32 (17-59) IU/L ALT 31 (<50) IU/L Alkaline Phosphatase 54 (38-126) U/L Total Protein 8.1 (6.3-8.2) g/dL Albumin 4.8 (3.5-5.0) g/dL Globulin 3.3 (1.7-4.1) g/dL Albumin/Globulin Ratio 1.5 (1.0-2.8) Lipase 97 (23-300) U/L Urine RBC None seen (0-5/HPF) Urine WBC 1-5/hpf (0-5/HPF) Ur Squamous Epith Cells None seen (0-5/HPF) Urine Bacteria None seen (None) Ur Culture Indicated? Cult not indicated Vol Urine Centrifuged 10ml (spun) Point of care testing: Urine Dip Bedside Urine Glucose Negative Bedside Urine Bilirubin - Negative Bedside Urine Ketone - Negative Urine Specific [place] 1.015 Bedside Urine Occult Blood +/- Bedside Urine pH 6.0 Bedside Urine Protein +/- 15 Bedside Urine Urobilinogen - Negative Bedside Urine Nitrite - Negative Bedside Urine Leukocytes - Negative Esterase Imaging Data CT scan - abdomen/pelvis: Radiologist's Impression: Close Abdomen/Pelvis CT (Signed) Esperanza Cruz - 04/05/24 Launch?[address] [address] [address] Scan Report Signed Patient: Glen Rojas MR#: [id number] : 1975 Acct:[id number] Age/Sex: 48 / M Date of Service: 04/05/24 Loc: ED Accession Number: [id number] Procedure: CT abdomen pelvis w con Ordering Provider: Bony Roberto MD PROCEDURE: CT ABDOMEN PELVIS W CON INDICATIONS: nausea/vomiting, abd pain, distension TECHNIQUE: After the administration of intravenous contrast, axial sections acquired from the lung bases to the pubic symphysis. Coronal and sagittal reformats were performed. For radiation dose reduction, the following was used: automated exposure control, adjustment of mA and/or kV according to patient size. COMPARISON: None. FINDINGS: Image quality: Diagnostic. Lower Chest: No significant findings. ABDOMEN: Liver: No solid mass. Gallbladder: No radiopaque gallstones or wall thickening. Biliary ducts: No biliary dilation. Pancreas: No ductal dilation. Spleen: Size is within normal limits. Adrenal Glands: No adrenal nodules. Kidneys and Ureters: No hydronephrosis. No solid mass. No complex renal cystic lesion which requires follow up. Stomach and Bowel: The stomach is distended and fluid-filled. Small bowel is distended and fluid-filled , measuring up to 4.3 cm in diameter. There is a focal transition point adjacent to the cecum which is best appreciated on axial image 67, coronal image 36, and sagittal image 70. Small bowel distal to this point is decompressed. The colon has a normal appearance without distension. Peritoneum: There is mild interloop fluid without focal fluid collection or Ventral Wall: No significant ventral hernia. Abdominal Nodes: No retroperitoneal or mesenteric adenopathy by size criteria. Vessels: Aorta and inferior vena cava are normal in size. PELVIS: Pelvic Organs: Unremarkable. Bladder: No bladder wall thickening, accounting for underdistention. Pelvic Nodes: No enlarged lymph nodes. Miscellaneous: No inguinal hernias are seen. Bones: No aggressive osseous abnormality. IMPRESSION: Small-bowel obstruction with a focal transition point in the right lower quadrant and no evidence of perforation. Dictated by: Esperanza Cruz M.D. on 04/05/2024 at 15:18 Approved by: Esperanza Cruz M.D. on 04/05/2024 at 15:26 MDM Narrative Medical decision making narrative: 48-year-old male with nausea vomiting and increasing abdominal distention, no history of cirrhosis/ascites, last bowel movement yesterday. Afebrile. White blood cell count increased 17,000 noted. Renal function normal. LFTs and lipase normal. BUN 20 with creatinine 0.99 normal, serum CO2 not decreased, hemoglobin 19 noted. DDx consider gastritis, gastric outlet obstruction, esophagitis, biliary colic, cholecystitis, choledocholithiasis, pancreatitis, colitis, diverticulitis, bowel obstruction, aortic aneurysm, other. CT abdomen and pelvis imaging requested. Uncomfortable appearing, IV Dilaudid/Zofran. NPO for now. CT abdomen and pelvis with IV contrast. Impressions: ?Small bowel obstruction with a focal transition point in the right lower quadrant and no evidence of perforation.See radiology report Case discussed with surgery Dr Agee, patient with history of diabetes and hypertension, no blood thinner medication, agrees with IV fluid hydration and NG tube to LI, admit to his service Surgery saw patient in the emergency department, concerned about focal area of obstruction on imaging, he will take patient to the operating room Critical Care Time Critical Care Time Critical Care Time: Yes Total Critical Care Time: 35 Attestation: The high probability of a clinically significant, sudden or life threatening deterioration of the [abdominopelvic, gastrointestinal, genitourinary,] system(s) required my full and direct attention, intervention and personal management. The aggregate critical care time was [35] minutes. This time is in addition to time spent performing reported procedures but includes the following: [x] Data Review and interpretation [x] Patient assessment and monitoring of vital signs [x] Documentation [x] Medication orders and management Discharge Plan Departure Patient Disposition: Admitted as Observation Clinical Impression: Abdominal pain, Nausea vomiting and diarrhea, Small bowel obstruction Admit Date/Time: 04/05/24 18:05 Admit Provider: Zak Agee
[2024-04-05] MEDS: SODIUM CHLORIDE 0.9% 1,000 ML 1000 ML IV (14:43)
[2024-04-05] MEDS: HYDROMORPHONE 0.5 MG INJ IV (14:46)
--- NOTE | 2024-04-05 15:29 | DI.CT.S_ITS ---
PROCEDURE: CT ABDOMEN PELVIS W CON INDICATIONS: nausea/vomiting, abd pain, distension TECHNIQUE: After the administration of intravenous contrast, axial sections acquired from the lung bases to the pubic symphysis. Coronal and sagittal reformats were performed. For radiation dose reduction, the following was used: automated exposure control, adjustment of mA and/or kV according to patient size. COMPARISON: None. FINDINGS: Image quality: Diagnostic. Lower Chest: No significant findings. ABDOMEN: Liver: No solid mass. Gallbladder: No radiopaque gallstones or wall thickening. Biliary ducts: No biliary dilation. Pancreas: No ductal dilation. Spleen: Size is within normal limits. Adrenal Glands: No adrenal nodules. Kidneys and Ureters: No hydronephrosis. No solid mass. No complex renal cystic lesion which requires follow up. Stomach and Bowel: The stomach is distended and fluid-filled. Small bowel is distended and fluid-filled , measuring up to 4.3 cm in diameter. There is a focal transition point adjacent to the cecum which is best appreciated on axial image 67, coronal image 36, and sagittal image 70. Small bowel distal to this point is decompressed. The colon has a normal appearance without distension. Peritoneum: There is mild interloop fluid without focal fluid collection or Ventral Wall: No significant ventral hernia. Abdominal Nodes: No retroperitoneal or mesenteric adenopathy by size criteria. Vessels: Aorta and inferior vena cava are normal in size. PELVIS: Pelvic Organs: Unremarkable. Bladder: No bladder wall thickening, accounting for underdistention. Pelvic Nodes: No enlarged lymph nodes. Miscellaneous: No inguinal hernias are seen. Bones: No aggressive osseous abnormality. IMPRESSION: Small-bowel obstruction with a focal transition point in the right lower quadrant and no evidence of perforation. Dictated by: Esperanza Cruz M.D. on 04/05/2024 at 15:18 Approved by: Esperanza Cruz M.D. on 04/05/2024 at 15:26
[2024-04-05 16:08] LABS: RBC Urine None Seen (0-5/HPF); Urine Volume 10mL (spun); WBC Urine 1-5/HPF (0-5/HPF)
[2024-04-05 16:09] LABS: Bacteria Urine None Seen; Culture Indicated Urine Cult Not Indicated; Squamous Epithelial Cell Urine None Seen (0-5/HPF)
[2024-04-05 16:58] LABS: Lactate (Lactic Acid) 2.1 mmol/L (0.7-2.1)
[2024-04-05] MEDS: LORazepam 2 MG/ML INJ 1 MG IV (17:07)
--- NOTE | 2024-04-05 17:24 | DI.RAD.S_ITS ---
PROCEDURE: XR CHEST 1V INDICATIONS: verify NG tube placement TECHNIQUE: One view of the chest was acquired. COMPARISON: None. FINDINGS: Surgical changes and devices: Enteric tube is coiled within the distal esophagus. Lungs and pleura: Lungs are hypoinflated but clear. No pleural effusions or pneumothorax. Mediastinum: Mediastinal contours appear normal. Heart size is normal. Bones and chest wall: No suspicious bony lesions. Overlying soft tissues appear unremarkable. IMPRESSION: Enteric tube terminating within the distal esophagus. Dictated by: Esperanza Cruz M.D. on 04/05/2024 at 16:36 Approved by: Esperanza Cruz M.D. on 04/05/2024 at 16:37
[2024-04-05] MEDS: LACTATED RINGERS 1,000 ML 1000 ML IV (17:34)
--- NOTE | 2024-04-05 17:35 | PC.NURSE ---
NG tube insertion Difficult placement with patient becoming diaphoretic and wretching. 275cc green bile extracted by suction. Pt reports feeling like he is choking. Provider at bedside for xray. NG tube removed due to not being in correct position per ER provider.
--- NOTE | 2024-04-05 18:15 | P.HP_ITS ---
History of Present Illness History of Present Illness Date Patient Seen: 04/05/24 Time Patient Seen: 18:15 Chief complaint: Stomach pain, Chills , vomiting Narrative: Mr. Rojas is a 48-year-old man PMH [id number] diabetes, hypertension who presents to to the emergency department with a small-bowel obstruction. He has never had prior abdominal surgery. For the past 3 days he has had worsening abdominal pain distention nausea and emesis, no flatus. At admission WBC 18 with left shift hematocrit 57 although it should be noted that his baseline hematocrit is 55, creatinine 1.0. CT abdomen pelvis demonstrates markedly dilated small bowel with a distinct transition point in the distal small bowel within the right lower quadrant. Nasogastric tube placement was attempted but he did not tolerate it. [facility] Medical History Well adult exam Preventative health care Low testosterone in male Gluten intolerance Essential hypertension (04/2021) Elevated ALT measurement Right hip pain (2017) Lumbago with sciatica, right side (2018) Chicken pox Gout (~2009) Family history of diabetes mellitus (DM) Surgical History Anesthesia History of knee surgery (~2015) Fracture (~2009) Family History Father Diabetes mellitus Hypertension Grandfather Cancer Grandmother Cancer Grandmother Stroke Social History (Reviewed 03/19/19 @ 19:59 by NAT [facility] Smoking Status: Former smoker Tobacco: How many years used: 15 quit status: considering quitting (Patient declines smoking cessation handout) second hand exposure: No alcohol intake: current (a couple shots of whiskey 1-2x week) substance use type: does not use Meds Home Medications and Allergies Home Medications Medication Instructions Recorded Confirmed Type Lutein 1 tab PO DAILY 03/19/19 08/09/23 History acetaminophen 500 mg tablet 1,000 mg PO Q6H PRN pain 03/19/19 08/09/23 History (Tylenol Extra Strength) multivitamin 1 tab PO DAILY 03/19/19 08/09/23 History Glucometer #1 ea 03/20/19 08/09/23 Rx diclofenac sodium 1 % topical gel 2 gram topical QID #100 grams 06/11/19 08/09/23 Rx blood pressure kit-extra large #1 ea 06/26/21 08/09/23 Rx blood sugar diagnostic See Rx Instructions .Route 02/28/23 08/09/23 Rx .COMPLEX #100 ea blood-glucose meter #1 ea 02/28/23 08/09/23 Rx lancets 33 gauge See Rx Instructions .Route 02/28/23 08/09/23 Rx .COMPLEX #100 ea metformin 1,000 mg tablet 1,000 mg PO BID #180 tabs 07/30/23 08/09/23 Rx 1 mL syringe (disp) #1 ea 08/09/23 08/09/23 Rx needle (disp) 23 gauge 23 gauge x #100 ea 08/09/23 08/09/23 Rx 1 1/2 cyclobenzaprine 10 mg tablet 10 mg PO BEDTIME PRN muscle spasm 10/29/23 Rx #90 tabs amlodipine 2.5 mg tablet 2.5 mg PO BEDTIME #90 tabs 11/04/23 Rx lisinopril 20 mg tablet 20 mg PO DAILY #90 tabs 12/16/23 Rx meloxicam 15 mg tablet 15 mg PO DAILY #30 tabs 01/31/24 Rx testosterone cypionate 100 mg/mL 50 mg (0.5 mL) IM QWEEK #10 mL 03/17/24 Rx intramuscular oil Allergies Allergy/AdvReac Type Severity Reaction Status Date / Time gluten Allergy Severe arthritis Verified 04/05/24 13:37 dulaglutide [From [facility]] AdvReac Intermediate hives, Verified 04/05/24 13:37 thyroid swelling, sinus problems, congestion. milk protein Allergy Intermediate slow, Uncoded 08/09/23 16:12 lethergic, GI upset MSG Allergy Intermediate slow, Uncoded 08/09/23 16:12 lethargic, migraine Exam Vital Signs (past 8 hours): - 04/05/24 13:37 04/05/24 14:17 04/05/24 14:21 Temperature 97.0 F L Pulse Rate 83 78 Respiratory Rate 16 Blood Pressure 177/102 H 179/98 H Pulse Oximetry 99 97 Oxygen Delivery Method Room Air 04/05/24 14:21 04/05/24 14:30 04/05/24 14:30 Temperature Pulse Rate 79 75 Respiratory Rate Blood Pressure 187/103 H Pulse Oximetry 98 95 Oxygen Delivery Method Room Air 04/05/24 15:00 04/05/24 15:00 04/05/24 15:22 Temperature Pulse Rate 74 76 Respiratory Rate Blood Pressure 190/98 H Pulse Oximetry 96 98 Oxygen Delivery Method Room Air 04/05/24 15:22 04/05/24 15:30 04/05/24 15:30 Temperature Pulse Rate 74 Respiratory Rate Blood Pressure 184/106 H 179/97 H Pulse Oximetry 98 Oxygen Delivery Method Room Air 04/05/24 16:00 04/05/24 16:30 04/05/24 17:00 Temperature Pulse Rate 70 78 82 Respiratory Rate Blood Pressure Pulse Oximetry 95 96 Oxygen Delivery Method Room Air 04/05/24 17:30 04/05/24 17:34 04/05/24 17:34 Temperature Pulse Rate 89 84 Respiratory Rate Blood Pressure 178/95 H Pulse Oximetry 95 96 Oxygen Delivery Method Room Air Oxygen Delivery Method Room Air Narrative Exam Narrative: General adult man alert oriented no acute distress Chest mildly labored respirations Abdomen markedly distended tender to palpation no nely peritonitis Extremities warm well perfused Objective Labs 04/05/24 13:47 04/05/24 13:47 Labs: Laboratory Results - last 24 hr 04/05/24 04/05/24 13:47 15:36 WBC 17.5 H RBC 6.39 H Hgb 19.5 H Hct 56.7 H MCV 88.7 MCH 30.5 MCHC 34.4 RDW 14.4 Plt Count 223 Neut % (Auto) 84.9 H Lymph % (Auto) 6.2 L [place] % (Auto) 8.4 Eos % (Auto) 0.1 L Baso % (Auto) 0.4 Neut # (Auto) 01910 H Lymph # (Auto) 1100 [place] # (Auto) 1500 H Eos # (Auto) 0 Baso # (Auto) 100 Sodium 131 L Potassium 4.2 Chloride 91 L Carbon Dioxide 28 BUN 20 Creatinine 0.99 Estimated GFR > 60 BUN/Creatinine Ratio 20.2 Glucose 171 H Lactate 2.1 Calcium 9.6 Total Bilirubin 1.1 AST 32 ALT 31 Alkaline Phosphatase 54 Total Protein 8.1 Albumin 4.8 Globulin 3.3 Albumin/Globulin Ratio 1.5 Lipase 97 Urine RBC None seen Urine WBC 1-5/hpf Ur Squamous Epith Cells None seen Urine Bacteria None seen Ur Culture Indicated? Cult not indicated Vol Urine Centrifuged 10ml (spun) Assessment & Plan Assessment and plan (1) Small bowel obstruction: Problem details: 48-year-old man PMH hypertension, [id number] diabetes with a small bowel obstruction no prior abdominal surgery. Laboratory studies and imaging reviewed personally notable for leukocytosis of 18 CT with a distinct transition point right lower quadrant. We discussed management options including conservative therapy or surgical intervention the risks and benefits of each. The clear transition point, leukocytosis significant abdominal pain and having no prior abdominal surgery I tend to favor surgery. Following discussion he elects to proceed with exploratory laparotomy. Overview of the operation was discussed. Operative risks including hemorrhage, infection, damage to surrounding structures, aspiration were reviewed. His questions have been answered any provides his consent to proceed. Status: Acute Time-Based Coding :: [TOTAL MINUTES] spent with patient and on the chart (including review of chart, obtaining history, exam, reviewing outside data, placing orders, documenting exam and treatment plan, and counseling patient) on [DATE].
[2024-04-05 18:25] LABS: Reflexed Lactate in 2 Hours Y
[2024-04-05] MEDS: LACTATED RINGERS 1,000 ML 42 ML IV (19:06)
[2024-04-05 19:11] LABS: Lactate 2HR (Lactic Acid Rflx) 1.8 mmol/L (0.7-2.1)
[2024-04-05] MEDS: PIPERACILLIN/TAZO 4.5 GM in SODIUM CHLORIDE 0.9% 100 ML IV (19:47)
--- NOTE | 2024-04-05 19:53 | SUR.OPER ---
Supine on padded OR bed, head on pillow, arms secured on padded arm boards at <90 degrees abduction, legs uncrossed, safety belt at thigh, tape over blanket over lower legs.
[2024-04-05] MEDS: BUPIVACAINE 0.25% (PF) 30 ML, EPINEPHrine 0.15 MG INJ (19:56)
[2024-04-05] MEDS: BUPIVACAINE LIPOSOME 266 MG/20 ML VIAL INJ (19:59)
--- NOTE | 2024-04-05 20:53 | P.OP_ITS ---
Operative Date/Time/Diagnoses Date of procedure: 04/05/24 Time of procedure: 20:53 Pre-op diagnosis: Small-bowel obstruction Post-op diagnosis: same Procedure & Clinicians Procedure: Exploratory laparotomy Same procedure as scheduled: Yes Indications: 48-year-old man with 3 days of small bowel obstruction symptoms and no prior abdominal surgery. CT demonstrates a distinct transition point in the right lower quadrant. Surgeon: Zak Agee Click Yes if Unassisted: Yes Anesthesia Type: General Operative Notes Findings: Distal small-bowel volvulus bowel is viable with simple detorsion Suspect Crohn's disease. Creeping mesenteric fat onto the small bowel. The wall of the small bowel is abnormally thickened. The area of active disease appears to be in the jejunum and grossly spares the distal ileum. Specimen(s): none sent Estimated Blood Loss (mL): 5 Procedure in detail: Patient was brought to the operating room placed supine on the table. Bilateral lower extremity compression devices were applied. Prior to the induction of general anesthesia nasogastric tube was placed by anesthesia. He then received a rapid sequence induction and was successfully intubated with an endotracheal tube. He was then prepped and draped in sterile fashion. He received 4.5 g of Zosyn. Time-out performed. A limited lower midline incision was made below the level of the umbilicus. The subcutaneous tissue was divided the fascia was grasped elevated sharply incised in the abdomen was entered atraumatically. The small bowel was eviscerated from the abdomen notable for several features marked inflammation, a abnormally thickened wall and creeping mesenteric and diffuse mesenteric lymphadenopathy. I suspect he has undiagnosed Crohn's disease. The area of transition was in the distal small bowel at a small-bowel volvulus. It easily detorsed and was viable. The small bowel was then run in its entirety from the terminal ileum to the ligament of Treitz. The bowel was returned to the abdomen which was irrigated and returned clear. The fascia was closed in running manner with PDS. The skin was closed with richard. At total of 30 ml of 1/4 % bupivicaine and 20 ml of Experel were injected into the skin. The sponge and instrument were correct x 2. He emerged from anesthesia and malagon sferred to recovery in stable condition. Complications: none Post-operative Condition: stable Disposition: Acute Care
--- NOTE | 2024-04-05 20:56 | DI.RAD.S_ITS ---
PROCEDURE: XR CHEST 1V INDICATIONS: check ng tube placement TECHNIQUE: One view of the chest was acquired. COMPARISON: [facility], CR, XR CHEST 1V, 04/05/2024, 17:21. FINDINGS: Left costophrenic angle is outside the field of view. Surgical changes and devices: Enteric tube is been advanced and is now coiled in the stomach. Lungs and pleura: Lungs are clear. No pleural effusions or pneumothorax. Mediastinum: Mediastinal contours appear normal. Heart size is normal. Bones and chest wall: No suspicious bony lesions. Overlying soft tissues appear unremarkable. IMPRESSION: Enteric tube is now within the stomach. Dictated by: Laci Mckeon M.D. on 04/05/2024 at 21:24 Approved by: Laci Mckeon M.D. on 04/05/2024 at 21:25
[2024-04-05] MEDS: HYDROCORTISONE 100 MG/2 ML VIAL IV (22:11)
[2024-04-05] MEDS: LACTATED RINGERS 1,000 ML 100 ML IV (22:12)
[2024-04-05] MEDS: TETRACAINE/BENZOCAINE/BUTAMBEN (CETACAINE) BOTTLE 1 SPRAY TOP (22:59)
[2024-04-05] MEDS: KETOROLAC 30 MG/ML VIAL IV (23:04)
[2024-04-06] VITALS (8 sets, daily range): BP systolic 133–147; BP diastolic 81–95; PULSE 86–93; RESP 18–20; TEMP 36.1–37.1; O2SAT 92–96
[2024-04-06] MEDS: HYDROMORPHONE 0.5 MG INJ 1 MG IV ×2 (01:03→05:29)
[2024-04-06] MEDS: HYDROCORTISONE 100 MG/2 ML VIAL IV ×2 (03:37→09:59)
[2024-04-06 06:01] LABS: Add Manual Diff / Slide Review NO; Basophils Absolute Auto 0 /uL (0-100); Basophils Percent Auto 0.1 % (0-2); Eosinophils Absolute Auto 0 /uL (0-450); Eosinophils Percent Auto 0.3 % (2-4); Hematocrit 51.6 % (41-53); Hemoglobin 17.9 g/dL (13.5-17.5); Lymphocytes Absolute Auto 400 /uL (1100-4500); Mean Corpuscular HGB Conc 34.7 % (30-36); Mean Corpuscular Hemoglobin 31.1 PG (26-34); Mean Corpuscular Volume 89.7 fL (80-100); Monocytes Absolute Auto 1300 /uL (0-900); Neutrophils Absolute Auto 9000 /uL (1500-7000); Neutrophils Percent Auto 83.6 % (50-75); Platelet Count 181 X10^3/uL (150-400); Red Blood Cell Count 5.75 X10^6/uL (4.5-5.9); Red Cell Distribution Width 14.4 % (11.6-14.8); White Blood Cell Count 10.8 X10^3/uL (4.5-11.0)
[2024-04-06 06:13] LABS: BUN Creatinine Ratio 21.2 (6-22); Blood Urea Nitrogen 21 mg/dL (9-20); Calcium 8.3 mg/dL (8.4-10.2); Carbon Dioxide 25 mmol/L (22-32); Chloride 99 mmol/L (98-107); Estimated Glomerular Filt Rate > 60 mL/min (>60); Glucose 146 mg/dL (70-100); HEMOLYSIS < 15 (0-50); Potassium 4.3 mmol/L (3.4-5.1); Sodium 133 mmol/L (137-145)
[2024-04-06] MEDS: KETOROLAC 30 MG/ML VIAL IV (08:24)
--- NOTE | 2024-04-06 09:35 | CM.DANOTE ---
Addendum entered by JOSE Kimbrough 04/06/24 11:00: Per surgeon, dc NG tube. Wants pt to be off work until 04/13. Will sign work letter when he rounds. No restrictions at this time. Anticipate dc today. SENIOR INFORMATION SECURITY ANALYST placed work letter in chart for surgeon to sign. P: pt likely to dc today once having a successful BM. transport self vs family to pick him up. CM team will continue to follow as needed JOSE Kimbrough Original Note: DCP Assessment Note Pt is a 48yo M POD1 from a SBO. PCP Say [place] Payer [place] out of state [place] and self pay SENIOR INFORMATION SECURITY ANALYST reviewed EMR. SENIOR INFORMATION SECURITY ANALYST entered room and introduced self alone. Pt still has NG tube. Pt confirms lives alone in [place]. Works as a truck driving driving fuel. Asked for work excuse letter. This SENIOR INFORMATION SECURITY ANALYST agreed to assist. Pt reports he can either drive self (car is here) or family can take him home. Denies other CM needs P: pt to dc home once able to ambulate/have a BM. today vs tomorrow. transport self vs family to pick him up, need work excuse letter. CM team will continue to follow as needed JOSE Kimbrough Discharge Planning/Care Management CM Discharge Assessment Start: 04/06/24 09:33 Freq: Status: Active Protocol: Document 04/06/24 09:34 SL (Rec: 04/06/24 09:35 [id number]) Discharge Planning Assessment Assigned Phd Intern JOSE Gaytan DPOA/Assigned Designee Name mother Macedo Contact Information [phone] Advance Directives? No History Provided By Patient Prior Living Arrangements Apartment/Condo Household Members none Type of transporation used prior to Drives own vehicle admit Independent with ADL's Yes Is patient alert and oriented? Yes Barriers to Discharge No Discharge Plan Home Transportation Arrangement self in POV Referrals Initiated None needed Whiteboard Updated in Patient Room with Yes name and ext. # of Phd Intern Review Status In Process Please Provide Date Initial DC 04/06/24 Assessment Was Performed Next Review Type Continued Stay Review
--- NOTE | 2024-04-06 12:54 | PM.PN.1 ---
Subjective Subjective Date Patient Seen: 04/06/24 Time Patient Seen: 12:54 Interval history: Glen feels well today. Just a little bit of incisional pain. He has tolerated clears. Exam Vital Signs (past 8 hours): - 04/06/24 05:00 04/06/24 08:00 04/06/24 09:00 Temperature 97.0 F L Pulse Rate 89 Respiratory Rate 20 Blood Pressure 146/95 H Pulse Oximetry 92 95 95 Oxygen Delivery Method Room Air Nasal Cannula Oxygen Flow Rate 0 04/06/24 12:00 Temperature 98.8 F Pulse Rate 93 H Respiratory Rate 19 Blood Pressure 147/91 H Pulse Oximetry 95 Oxygen Delivery Method Oxygen Flow Rate Oxygen Delivery Method Nasal Cannula Oxygen Flow Rate 0 Const General: No acute distress Objective Labs 04/06/24 05:52 04/06/24 05:52 Labs: Laboratory Results - last 24 hr 04/05/24 04/05/24 04/05/24 13:47 15:36 18:54 WBC 17.5 H RBC 6.39 H Hgb 19.5 H Hct 56.7 H MCV 88.7 MCH 30.5 MCHC 34.4 RDW 14.4 Plt Count 223 Neut % (Auto) 84.9 H Lymph % (Auto) 6.2 L [place] % (Auto) 8.4 Eos % (Auto) 0.1 L Baso % (Auto) 0.4 Neut # (Auto) 96008 H Lymph # (Auto) 1100 [place] # (Auto) 1500 H Eos # (Auto) 0 Baso # (Auto) 100 Sodium 131 L Potassium 4.2 Chloride 91 L Carbon Dioxide 28 BUN 20 Creatinine 0.99 Estimated GFR > 60 BUN/Creatinine Ratio 20.2 Glucose 171 H Lactate 2.1 1.8 Calcium 9.6 Total Bilirubin 1.1 AST 32 ALT 31 Alkaline Phosphatase 54 Total Protein 8.1 Albumin 4.8 Globulin 3.3 Albumin/Globulin Ratio 1.5 Lipase 97 Urine RBC None seen Urine WBC 1-5/hpf Ur Squamous Epith Cells None seen Urine Bacteria None seen Ur Culture Indicated? Cult not indicated Vol Urine Centrifuged 10ml (spun) 04/06/24 05:52 WBC 10.8 RBC 5.75 Hgb 17.9 H Hct 51.6 MCV 89.7 MCH 31.1 MCHC 34.7 RDW 14.4 Plt Count 181 Neut % (Auto) 83.6 H Lymph % (Auto) 4.0 L [place] % (Auto) 12.0 Eos % (Auto) 0.3 L Baso % (Auto) 0.1 Neut # (Auto) 9000 H Lymph # (Auto) 400 L [place] # (Auto) 1300 H Eos # (Auto) 0 Baso # (Auto) 0 Sodium 133 L Potassium 4.3 Chloride 99 Carbon Dioxide 25 BUN 21 H Creatinine 0.99 Estimated GFR > 60 BUN/Creatinine Ratio 21.2 Glucose 146 H Lactate Calcium 8.3 L Total Bilirubin AST ALT Alkaline Phosphatase Total Protein Albumin Globulin Albumin/Globulin Ratio Lipase Urine RBC Urine WBC Ur Squamous Epith Cells Urine Bacteria Ur Culture Indicated? Vol Urine Centrifuged [facility] Medical History Well adult exam Preventative health care Low testosterone in male Gluten intolerance Essential hypertension (04/2021) Elevated ALT measurement Right hip pain (2018) Lumbago with sciatica, right side (2018) Chicken pox Gout (~2009) Family history of diabetes mellitus (DM) Surgical History Anesthesia History of knee surgery (~2015) Fracture (~2009) Family History Father Diabetes mellitus Hypertension Grandfather Cancer Grandmother Cancer Grandmother Stroke Social History household members: none Smoking Status: Former smoker Tobacco: How many years used: 15 quit status: considering quitting (Patient declines smoking cessation handout) second hand exposure: No alcohol intake: current substance use type: does not use Assessment & Plan Assessment and plan (1) Small bowel obstruction: Problem details: 48-year-old man PMH hypertension, suk-sgiraan-[id number] diabetes with a small bowel obstruction no prior abdominal surgery. Laboratory studies and imaging reviewed personally notable for leukocytosis of 18 CT with a distinct transition point right lower quadrant. We discussed management options including conservative therapy or surgical intervention the risks and benefits of each. The clear transition point, leukocytosis significant abdominal pain and having no prior abdominal surgery I tend to favor surgery. Following discussion he elects to proceed with exploratory laparotomy. Overview of the operation was discussed. Operative risks including hemorrhage, infection, damage to surrounding structures, aspiration were reviewed. His questions have been answered any provides his consent to proceed. Status: Acute Plan Advance diet to regular Home when tolerating and pain is controlled, possibly later today Time-Based Coding :: [TOTAL MINUTES] spent with patient and on the chart (including review of chart, obtaining history, exam, reviewing outside data, placing orders, documenting exam and treatment plan, and counseling patient) on [DATE].
[2024-04-06] MEDS: ACETAMINOPHEN 325 MG TABLET 650 MG PO (13:31)
== END 2024-04-06 16:45 | disposition home or self-care (01) | DRG 356 ==
LOC: ED 16:43 → AC 18:06
PROVIDERS: Admitting Provider Surgery; Emergency Provider Emergency Medicine; PCP Family Medicine; Referring Provider Emergency Medicine; Visit Provider Surgery
PROC: 0DJ00ZZ Inspection of Upper Intestinal Tract, Open Approach (ICD-10-PCS; CPT 49000; principal; 2024-04-05 19:15)
DX: K50.912 Crohn's disease, unspecified, with intestinal obstruction (principal); K56.2 Volvulus; Z87.891 Personal history of nicotine dependence
CPT/HCPCS: 36415; 71045; 74177; 80048; 80053; 81003; 81015; 82962; 83605; 83690; 85025; 96374; 96375; 99285; C9290; J0171; J0330; J1170; J1720; J1815; J1885; J2060; J2250; J2405; J2543; J2704; J3010; J3490; Q9967

== ENCOUNTER 2024-04-08 21:29 | Inpatient (IN) | payer BC, SELFPAY ==
[2024-04-05 21:34] VITALS: BMI 34.0
[2024-04-08 21:43] VITALS: BP 144/89; PULSE 90; RESP 20; TEMP 36.9; O2SAT 96; BMI 33.3
[2024-04-08 22:55] VITALS: BP 143/89; PULSE 92; RESP 18; TEMP 36.1; O2SAT 95
[2024-04-08] MEDS: ONDANSETRON 4 MG ODT PO (23:02)
[2024-04-08 23:27] LABS: Add Manual Diff / Slide Review NO; Basophils Absolute Auto 0 /uL (0-100); Basophils Percent Auto 0.2 % (0-2); Eosinophils Absolute Auto 0 /uL (0-450); Eosinophils Percent Auto 0.6 % (2-4); Hematocrit 54.8 % (41-53); Lymphocytes Absolute Auto 600 /uL (1100-4500); Lymphocytes Percent Auto 7.1 % (25-40); Mean Corpuscular HGB Conc 34.7 % (30-36); Mean Corpuscular Volume 89.5 fL (80-100); Monocytes Absolute Auto 1800 /uL (0-900); Monocytes Percent Auto 21.3 % (3-14); Neutrophils Absolute Auto 6000 /uL (1500-7000); Neutrophils Percent Auto 70.8 % (50-75); Platelet Count 240 X10^3/uL (150-400); Red Blood Cell Count 6.12 X10^6/uL (4.5-5.9); White Blood Cell Count 8.5 X10^3/uL (4.5-11.0)
[2024-04-08 23:35] LABS: Alanine Aminotransferase 26 IU/L (<50); Albumin 4.7 g/dL (3.5-5.0); Albumin Globulin Ratio 1.5 (1.0-2.8); Alkaline Phosphatase 56 U/L (38-126); Aspartate Aminotransferase 24 IU/L (17-59); BUN Creatinine Ratio 25.9 (6-22); Blood Urea Nitrogen 29 mg/dL (9-20); Calcium 9.5 mg/dL (8.4-10.2); Carbon Dioxide 30 mmol/L (22-32); Chloride 91 mmol/L (98-107); Estimated Glomerular Filt Rate > 60 mL/min (>60); Globulin 3.2 g/dL (1.7-4.1); Glucose 157 mg/dL (70-100); HEMOLYSIS < 15 (0-50); Lipase 65 U/L (23-300); Sodium 135 mmol/L (137-145); Total Protein 7.9 g/dL (6.3-8.2)
--- NOTE | 2024-04-08 23:47 | ED_ITS ---
HPI - Abdominal Pain General Chief Complaint: Abdominal Pain Stated Complaint: pukey, abd swelling, s/p surgery Time Seen by Provider: 04/08/24 23:45 Source: patient Mode of arrival: Ambulatory Limitations: no limitations History of Present Illness HPI narrative: 48-year-old male history of [id number] diabetes, hypertension who presented with small-bowel obstruction had ex lap here at [facility] and was discharged on 04/06/2024. Patient returns with increasing abdominal pain nausea and vomiting distention. He states he has had watery stools but no formed stools since his discharge. No black or blood noted. No dysuria urgency or frequency. He states he changed his bandage today his incision looked well except for some dried blood. He states no fevers but he has had chills. He states he has had difficulty keeping anything down for the last day. Had oral pain medications this morning but was not able to keep anything down this afternoon. Had his metformin yesterday but was not able to take it today. Patient states metformin his only current medication. States no prior abdominal surgeries besides his most recent ex lap for bowel obstruction. He states there was discussion about Crohn's disease potentially being a source of his symptoms. Denies any known drug allergies. No tobacco, alcohol or recreational drugs. Related Data Home Medications Medication Instructions Recorded Confirmed acetaminophen 500 mg tablet 1,000 mg PO Q6H PRN pain 03/19/19 04/05/24 (Tylenol Extra Strength) multivitamin 1 tab PO DAILY 03/19/19 04/05/24 amlodipine 2.5 mg tablet 5 mg PO BEDTIME 04/05/24 04/05/24 Previous Rx's Medication Instructions Recorded Glucometer #1 ea 03/20/19 blood pressure kit-extra large #1 ea 06/26/21 blood sugar diagnostic See Rx Instructions .Route 02/28/23 .COMPLEX #100 ea blood-glucose meter #1 ea 02/28/23 lancets 33 gauge See Rx Instructions .Route 02/28/23 .COMPLEX #100 ea metformin 1,000 mg tablet 1,000 mg PO BID #180 tabs 07/30/23 1 mL syringe (disp) #1 ea 08/09/23 needle (disp) 23 gauge 23 gauge x #100 ea 08/09/23 1 1/2 cyclobenzaprine 10 mg tablet 10 mg PO BEDTIME PRN muscle spasm 10/29/23 #90 tabs lisinopril 20 mg tablet 20 mg PO DAILY #90 tabs 12/16/23 meloxicam 15 mg tablet 15 mg PO DAILY #30 tabs 01/31/24 testosterone cypionate 100 mg/mL 50 mg (0.5 mL) IM QWEEK #10 mL 03/17/24 intramuscular oil hydrocodone 5 mg-acetaminophen 325 1 tab PO TID PRN pain #14 tabs 04/06/24 mg tablet Allergies Allergy/AdvReac Type Severity Reaction Status Date / Time gluten Allergy Severe arthritis Verified 04/05/24 19:14 dulaglutide [From Trulicity] AdvReac Intermediate hives, Verified 04/05/24 19:14 thyroid swelling, sinus problems, congestion. milk protein Allergy Intermediate slow, Uncoded 04/05/24 19:14 lethergic, GI upset MSG Allergy Intermediate slow, Uncoded 04/05/24 19:14 lethargic, migraine Review of Systems Review of Systems ROS Unobtainable: All systems reviewed & are unremarkable except as noted in HPI and below Patient History Medical History Well adult exam Preventative health care Low testosterone in male Gluten intolerance Essential hypertension (04/2021) Elevated ALT measurement Right hip pain (2017) Lumbago with sciatica, right side (2018) Chicken pox Gout (~2009) Family history of diabetes mellitus (DM) Surgical History Anesthesia History of knee surgery (~2015) Fracture (~2009) Family History Father Diabetes mellitus Hypertension Grandfather Cancer Grandmother Cancer Grandmother Stroke Social History household members: none Smoking Status: Former smoker Tobacco: How many years used: 15 quit status: considering quitting (Patient declines smoking cessation handout) second hand exposure: No alcohol intake: current substance use type: does not use Smoking Status: Former smoker alcohol intake frequency: a few times a week Substance Use Type: does not use Exam Narrative Exam Narrative: GENERAL: Alert and oriented x three, male in moderate distress HEENT: Head normocephalic, atraumatic, EOMI, pupils reactive, face symmetric, moist mucous membranes NECK: Supple, full range of motion CARDIOVASCULAR: Regular rate and rhythm without murmurs, rubs or gallops. RESPIRATORY: Breath sounds equal bilaterally, no wheezes rales or rhonchi. ABDOMEN: Patient is distended, feels full. Incision is clean dry and intact or small amount of dried blood but no erythema, no drainage incision appears intact. Patient's abdomen feels full somewhat firm. He is tender to generally but more particularly around his incision site and in the periumbilical area.. Normoactive bowel sounds all 4 quadrants. No guarding or rebound, rigidity, no mass : No CVA tenderness EXTREMITIES: Normal range of motion, no clubbing or edema. Neurovascularly intact NEUROLOGICAL: Cranial nerves II through XII grossly intact. Moving all extremities SKIN: Warm, dry, no petechiae, no rashes or lesions. Initial Vital Signs Initial Vital Signs: Vital Signs Temperature 98.4 F 04/08/24 21:43 Pulse Rate 90 04/08/24 21:43 Respiratory Rate 20 04/08/24 21:43 Blood Pressure 144/89 H 04/08/24 21:43 Pulse Oximetry 96 04/08/24 21:43 Oxygen Delivery Method Room Air 04/08/24 21:43 Course Orders Ordered: ED Orders 04/08/24 23:11 Complete Blood Count AUTO DIFF Stat Comprehensive Metabolic Panel Stat Lipase Stat 04/08/24 23:45 CT abdomen pelvis w con Stat Acetaminophen (Acetaminophen 325 Mg Tablet) 650 mg PO Q6H PRN PRN Reason: Fever/Mild Pain (1-3) Hydromorphone HCl (Hydromorphone 0.5 Mg Inj) 0.5 mg IV Q2H PRN PRN Reason: Pain, Severe (7-10) Sodium Chloride (Normal Saline 0.9%) 1,000 mls @ 100 mls/hr IV CONT VASILIY Methylprednisolone (Methylprednisolone 125 Mg/2 Ml Vial) 60 mg IV Q24H VASILIY Naloxone HCl (Naloxone 0.4 Mg/Ml Vial) 0.2 mg IV Q2MIN PRN PRN Reason: Opiate Reversal Ondansetron HCl (Ondansetron 4 Mg/2 Ml Inj) 4 mg IV NOW PRN PRN Reason: Nausea And Vomiting Last Admin: 04/09/24 00:00 Dose: 4 mg Documented By: AB Ondansetron HCl (Ondansetron 4 Mg Odt) 4 mg PO NOW PRN PRN Reason: Nausea And Vomiting Last Admin: 04/08/24 23:02 Dose: 4 mg Documented By: ELVER Ondansetron HCl (Ondansetron 4 Mg/2 Ml Inj) 4 mg IV Q8HR PRN PRN Reason: Nausea And Vomiting Promethazine HCl (Promethazine 12.5 Mg Supp) 12.5 mg OR Q6HR PRN PRN Reason: Nausea And Vomiting Discontinued Medications Sodium Chloride (Normal Saline 0.9%) 1,000 mls @ 1,000 mls/hr IV BOLUS ONE Stop: 04/09/24 00:44 Last Infusion: 04/09/24 01:00 Dose: Infused Documented By: Admin: 04/09/24 00:00 Dose: 1,000 mls/hr Documented By: Ketorolac Tromethamine (Ketorolac 30 Mg/Ml Vial) 15 mg IV NOW ONE Stop: 04/08/24 23:46 Last Admin: 04/09/24 00:00 Dose: 15 mg Documented By: Morphine Sulfate (Morphine 4 Mg/Ml Inj) 4 mg IV NOW ONE Stop: 04/09/24 01:35 Last Admin: 04/09/24 02:14 Dose: 4 mg Documented By: Vital Signs Vital signs: Vital Signs - 8 hr 04/08/24 21:43 04/08/24 22:55 04/08/24 23:56 Temperature 98.4 F 97.0 F L Pulse Rate 90 92 H 81 Respiratory Rate 20 18 Blood Pressure 144/89 H 143/89 H Pulse Oximetry 96 95 96 Oxygen Delivery Method Room Air Room Air 04/08/24 23:57 04/08/24 23:57 04/09/24 00:00 Temperature Pulse Rate 81 Respiratory Rate Blood Pressure 167/91 H 162/90 H Pulse Oximetry 97 Oxygen Delivery Method 04/09/24 00:00 04/09/24 00:20 04/09/24 00:20 Temperature Pulse Rate 82 79 Respiratory Rate Blood Pressure 175/81 H Pulse Oximetry 96 97 Oxygen Delivery Method 04/09/24 00:30 04/09/24 00:30 04/09/24 01:00 Temperature Pulse Rate 84 Respiratory Rate Blood Pressure 156/79 H 153/80 H Pulse Oximetry 95 Oxygen Delivery Method Room Air 04/09/24 01:00 04/09/24 01:30 04/09/24 01:30 Temperature Pulse Rate 79 71 Respiratory Rate Blood Pressure 155/78 H Pulse Oximetry 95 92 Oxygen Delivery Method Room Air MDM - Abdominal Pain Lab Data 04/08/24 23:11 04/08/24 23:11 Labs: Lab Results 04/08/24 Range/Units 23:11 WBC 8.5 (4.5-11.0) X10^3/uL RBC 6.12 H (4.5-5.9) X10^6/uL Hgb 19.0 H (13.5-17.5) g/dL Hct 54.8 H (41-53) % MCV 89.5 (80-100) fL MCH 31.0 (26-34) PG MCHC 34.7 (30-36) % RDW 14.0 (11.6-14.8) % Plt Count 240 (150-400) X10^3/uL Neut % (Auto) 70.8 (50-75) % Lymph % (Auto) 7.1 L (25-40) % [place] % (Auto) 21.3 H (3-14) % Eos % (Auto) 0.6 L (2-4) % Baso % (Auto) 0.2 (0-2) % Neut # (Auto) 6000 (8480-7744) /uL Lymph # (Auto) 600 L (7995-1748) /uL [place] # (Auto) 1800 H (0-900) /uL Eos # (Auto) 0 (0-450) /uL Baso # (Auto) 0 (0-100) /uL Sodium 135 L (137-145) mmol/L Potassium 4.0 (3.4-5.1) mmol/L Chloride 91 L (98-107) mmol/L Carbon Dioxide 30 (22-32) mmol/L BUN 29 H (9-20) mg/dL Creatinine 1.12 (0.66-1.25) mg/dL Estimated GFR > 60 (>60) mL/min BUN/Creatinine Ratio 25.9 H (6-22) Glucose 157 H (70-100) mg/dL Calcium 9.5 (8.4-10.2) mg/dL Total Bilirubin 1.0 (0.2-1.3) mg/dL AST 24 (17-59) IU/L ALT 26 (<50) IU/L Alkaline Phosphatase 56 (38-126) U/L Total Protein 7.9 (6.3-8.2) g/dL Albumin 4.7 (3.5-5.0) g/dL Globulin 3.2 (1.7-4.1) g/dL Albumin/Globulin Ratio 1.5 (1.0-2.8) Lipase 65 (23-300) U/L Imaging Data CT scan - abdomen/pelvis: Radiologist's Impression: 85 UserRM ? Megan Anderson, DO [facility] Routine Call Back Main ED ?12? My List ?10? Fast Track ?0? Waiting ?2? Surge ED ?0? R04? Nestelberger? ? Ani? 44 F? In Room? 17m? 4-Less Urgent? Urogenital-Female? 10 weeks urinary retention? SI? ?? No Time Seen? REG ER? No Document? Sign Up Order BP 122/62 Pulse 78 Resp 16 Temp 98.6 F O2 Sat 98% (RA) R11? Edge? ? Radha? 36 F? In Room? 18m? 2-Emergent? Psychiatric Symptoms? ETOH/SI SONIDO? SI, ? No Time Seen? REG ER? Draft? Megan Sanchez Order MAR Acetaminop... Complete B... Ethanol (E... TSH w/ Ref... Consult to... Chem Salicylate... Urine Drug... POC/DELMIS ... R05? Guillermo? ? Denise? 65 F? In Room? 27m? No Chief Complaint? chest pain says she needs an EKG? No Time Seen? REG ER? No Document? Sign Up Order zWRoom? Khanna? ? Amparo? 18 F? Registered? 2h 14m? 4-Less Urgent? Extremity Injury, Lower? fall rt leg pain? No Time Seen? REG ER? No Document? Sign Up Dr. Parrish doesnt think it needs XR's..... Order BP 119/68 Pulse 89 Resp 16 Temp 98.8 F O2 Sat 97% (RA) R13? Vagen? ? Deep? 37 M? With Doctor? 3h 44m? 2-Emergent? Psychiatric Symptoms? etoh, self harm, uncooperative? 04/08/24 21:53? REG ER? Draft? Megan Anderson October ? Order BP 130/74 Pulse 88 Resp 20 Temp 98.5 F O2 Sat 97% (RA) Free T4, D... Salicylate... ?Urine Drug... Acetaminop... Complete B... ?Chem ?Ethanol (E... Thyroid St... POC/DELMIS MAR R06? Gilbert? ? Glen? 48 M? With Doctor? 3h 57m? 3-Urgent? ?? VC: 1? Abdominal Pain? pukey, abd swelling, s/p surgery? C19S/S? ?? 04/08/24 23:45? REG ER? Draft? Megan Anderson October pain 02/04 Order BP 153/80 Pulse 79 Resp Temp O2 Sat 95% (RA) ?Complete B... ?Chem Lipase Sta... Imaging MAR NPO Diet POC/DELMIS Martin? Vinicius? ? Jay? 25 M? Ready for Discharge? 4h 24m? 3-Urgent? Chest Pain? chest pain? 04/09/24 00:54? REG ER? Draft? Megan Anderson CP, onset 1.5 hrs ago Worse with movement ECG Done x2 fall 2 weeks skateboarding Order BP 131/73 Pulse 66 Resp 18 Temp O2 Sat 100% (RA) Imaging Troponin &... Troponin I... EKG-12 Anna... Complete B... Magnesium ... NT-proBNP ... ?Prothrombi... PTT Partia... ?Chem Lipase Sta... EKG-12 Anna... MAR Cardiac mo... NPO Diet zWRoom? Catalino? ? Kemar? 63 M? Registered? 4h 30m? 3-Urgent? Skin/Abscess/Foreign Body? lt leg open wound, sent by pcp? C19S/S? ?? No Time Seen? REG ER? No Document? Sign Up recheck done hr 97 Bilateral LE Wounds, Seen @ residency clinic yesterday Instructed to be seen in ER, possible IV antibiotics. Order BP Pulse 97 Resp Temp O2 Sat R10? Parker? ? Danay? 44 F? With Doctor? 4h 35m? 3-Urgent? ?? VC: 1? Abdominal Pain? vomiting, abd pain? C19S/S? ?? 04/09/24 00:49? REG ER? No Document? Megan Sanchez recheck done Abdominal Migraines Seen Saturday Same Complaints Order BP 169/106 Pulse 108 Resp 22 Temp 97.9 F O2 Sat 99% (RA) MAR NPO Diet Complete B... Chem Lipase Sta... POC/DELMIS R02? Suamataia? ? Seuseu? 72 M? Pending Xfer to Other Facility? 6h 41m? 1-Resuscitation? Fall? Fall, HBP, delirious, hit head, no blood thinners? 04/08/24 19:10? REG ER? Draft? Megan Love [facility] [place] [facility] [address] [place] Accepted @ [facility] 5A4 Report number [id number] Order BP Pulse 41 Resp 16 Temp O2 Sat 100% (2L/NC) ?Chem Imaging ?Troponin I... Magnesium ... ?NT-proBNP ... EKG-12 Anna... ?Complete B... Lipase Sta... Prothrombi... ?PTT Partia... ?Troponin &... EKG-12 Anna... MAR NPO Diet Cardiac mo... R07? Vinson? ? Sheeba? 33 F? With Doctor? 7h 20m? 3-Urgent? Headache? Headache, neck px, body px, chills? Travel, ISO, C19S/S? ?? 04/08/24 21:53? REG ER? Draft? Megan Anderson October ? Order BP 110/69 Pulse 74 Resp 36 Temp O2 Sat ?Chem PTT Partia... ?Complete B... Lactate (L... Lipase Sta... Procalcito... ?Prothrombi... Imaging POC/DELMIS Respirator... MAR NPO Diet Cardiac mo... EKG-12 Anna... RT Consult... Microbiolo... R08? Good? ? Alonso? 85 M? With Doctor? 30h 5m? 3-Urgent? Fall? multiple falls, injuries? C19S/S? ?? 04/07/24 20:08? REG ER? I-Signed? Megan Anderson October Boarding [facility] reviewing [x] PT = SNF [x] OT = SNF, SLUMS: 06/27 Order BP 150/72 Pulse 68 Resp 22 Temp O2 Sat 99% (RA) ?Complete B... Ethanol (E... Magnesium ... Prothrombi... ?Urinalysis... ?Chem ?Urine Drug... EKG-12 Anna... Imaging Ictotest U... MAR Consult to... Consult to... Consult to... General (R... Imaging - CT abdomen pelvis w con Glen Rojas??48??M??1975 ? Allergy/Adv: gluten, dulaglutide, [milk protein ], [MSG] (More??) Close Imaging ACTIVITY DATE EXAM STATUS AUTHOR 04/08/24 23:45 Abdomen/Pelvis CT Signed Call,Laci Imaging Reports Close Abdomen/Pelvis CT (Signed) CallLaci - 04/08/24 Launch?[place] [address] CT Scan Report Signed Patient: Glen Rojas MR#: [id number] : 1975 Acct:[id number] Age/Sex: 48 / M Date of Service: 04/08/24 Loc: ED Accession Number: [id number] Procedure: CT abdomen pelvis w con Ordering Provider: Megan Anderson D.O. PROCEDURE: CT ABDOMEN PELVIS W CON INDICATIONS: abd pain, 2 days post op for exlap, vomiting/liquid stoop TECHNIQUE: After the administration of intravenous contrast, axial sections acquired from the lung bases to the pubic symphysis. Coronal and sagittal reformats were performed. For radiation dose reduction, the following was used: automated exposure control, adjustment of mA and/or kV according to patient size. COMPARISON: [facility], CT, CT ABDOMEN PELVIS W CON, 04/05/2024, 15:37. FINDINGS: Image quality: Diagnostic. Lower Chest: No significant findings. ABDOMEN: Liver: No solid mass. Gallbladder: No radiopaque gallstones or wall thickening. Biliary ducts: No biliary dilation. Pancreas: No ductal dilation. Spleen: Size is within normal limits. Adrenal Glands: No adrenal nodules. Kidneys and Ureters: No hydronephrosis. No solid mass. No complex renal cystic lesion which requires follow up. Stomach and Bowel: Small bowel obstruction. Suspected transition point in the right abdomen, (11/15). No pneumatosis intestinalis. No fluid collection. Stomach is within normal limits. Colon is within normal limits. Normal appendix. Peritoneum: No abnormal intraperitoneal fluid. No free air. Mesenteric edema in the mid abdomen. Somewhat shotty appearing mesenteric lymph nodes. Ventral Wall: No significant ventral hernia. Midline staple line. Scant subcutaneous gas at the left abdominal wall. Abdominal Nodes: No retroperitoneal or mesenteric adenopathy by size criteria. Vessels: Aorta and inferior vena cava are normal in size. PELVIS: Pelvic Organs: Trace free fluid in the pelvis. Bladder: No bladder wall thickening, accounting for underdistention. Pelvic Nodes: No enlarged lymph nodes. Miscellaneous: No inguinal hernias are seen. Bones: No aggressive osseous abnormality. IMPRESSION: Small bowel obstruction. Suspected transition point in the right abdomen. No pneumoperitoneum. Dictated by: Laci Mckeon M.D. on 04/09/2024 at 1:03 Approved by: Laci Mckeon M.D. on 04/09/2024 at 1:11 MDM Narrative Medical decision making narrative: 48-year-old male recent ex lap for volvulus. Patient returns with similar symptoms he states the pain feels similar he is having nausea and vomiting he has had watery stool but no formed stool. Possibility of bowel obstruction, infection, ileus versus other. Labs show white count 8 point hemoglobin 19 patient was elevated at 19 and decreased to 17 during his hospital stay. Platelets are 240. Sodium is 135 potassium is 4 chloride 91 CO2 is 30 BUN 29 creatinine is 1.12, glucose is 157 LFTs are negative. Point of care urine CT abdomen pelvis shows possible small bowel obstruction with transition point in the right lower abdomen. No pneumatosis intestinalis. No fluid collection. Some aches within normal limits no abnormal intraperitoneal fluid or free air mesenteric edema in the mid abdomen somewhat shotty appearing mesenteric lymph nodes. Patient had fluids, antiemetics and pain medication. Spoke with Dr. Agee on-call for General surgery. He is familiar with the patient and performed his surgery. Asked if we can admit patient to medicine with surgery to consult has known diabetes and they suspect that he has a diagnosed Crohn's causing his intestinal issues in the 1st place. He notes patient was on high-dose steroids during his hospitalization. Would ask for hospitalist management to restart steroids. Spoke with Dr. Pinto, tele hospitalist, discussed accepts for inpatient admission. Did ask about transferring for Gastroenterology. Did re-contact Dr. Agee who states he does not feel he needs transfer at this time and re- contacted tele hospitalist who accepts. Reviewed recommendations from Dr. Agee including starting steroids but defers dosing to internal medicine. Discharge Plan Departure Patient Disposition: Admitted As Inpatient Clinical Impression: Partial small bowel obstruction, Diabetes Admit Date/Time: 04/09/24 01:58 Admit Provider: Olvin Pinto
[2024-04-08 23:56] VITALS: PULSE 81; O2SAT 96
[2024-04-08 23:57] VITALS: BP 167/91; PULSE 81; O2SAT 97
[2024-04-09] VITALS (11 sets, daily range): BP systolic 124–178; BP diastolic 77–99; PULSE 67–84; RESP 15–19; TEMP 35.7–36.6; O2SAT 92–98; BMI 33.3
[2024-04-09] MEDS: KETOROLAC 30 MG/ML VIAL 15 MG IV
[2024-04-09] MEDS: SODIUM CHLORIDE 0.9% 1,000 ML 1000 ML IV
[2024-04-09] MEDS: MORPHINE 4 MG/ML INJ IV (02:14)
--- NOTE | 2024-04-09 02:30 | P.HP_ITS ---
History of Present Illness History of Present Illness Chief complaint: pukey, abd swelling, s/p surgery Narrative: 48 year old male with past medical history of HTN and NIDDM on Metformin presents with abdominal pain. Of note, the patient was recently admitted here for SBO and was discharged two days ago on 04/06/24 after have a lapascopic surgical intervention by our surgeon Dr. Agee. However, per the patient's report, the patient went home and started to have some nausea, vomiting and abdominal distention the next day. The patient states today, the patient was haveing bad nausea and vomiting and was not able to keep anything down including his Metfomrin. The patient states his abdomen is more distended but did not report of pain. The patient also states he has been having loose stools but denies any GIB. The patient also states that his surgical incision site was intact without much sign of infection or bleeding. Otherwise, the patient denies any fever, chills, chest pain, shortness of breath, coughing or dysuria. In our ER, the patient was hemodynamically stable without sign of sepsis. Labs were relatively benign. CT abdomen suggested partial small bowel obstruction. Dr. Agee was consulted and recommended that medicine service can admit the patient for IV steroids (as this was thought to be caused by undiagnosed Crohn's disease). [facility] Medical History Well adult exam Preventative health care Low testosterone in male Gluten intolerance Essential hypertension (04/2021) Elevated ALT measurement Right hip pain (2018) Lumbago with sciatica, right side (2018) Chicken pox Gout (~2009) Family history of diabetes mellitus (DM) Surgical History Anesthesia History of knee surgery (~2015) Fracture (~2009) Family History Father Diabetes mellitus Hypertension Grandfather Cancer Grandmother Cancer Grandmother Stroke Social History household members: none Smoking Status: Former smoker Tobacco: How many years used: 15 quit status: considering quitting (Patient declines smoking cessation handout) second hand exposure: No alcohol intake: current substance use type: does not use Meds Home Medications and Allergies Home Medications Medication Instructions Recorded Confirmed Type acetaminophen 500 mg tablet 1,000 mg PO Q6H PRN pain 03/19/19 04/09/24 History (Tylenol Extra Strength) Glucometer #1 ea 03/20/19 04/09/24 Rx blood pressure kit-extra large #1 ea 06/26/21 04/09/24 Rx blood-glucose meter #1 ea 02/28/23 04/09/24 Rx metformin 1,000 mg tablet 1,000 mg PO BID #180 tabs 07/30/23 04/09/24 Rx 1 mL syringe (disp) #1 ea 08/09/23 04/09/24 Rx needle (disp) 23 gauge 23 gauge x #100 ea 08/09/23 04/09/24 Rx 1 1/2 cyclobenzaprine 10 mg tablet 10 mg PO BEDTIME PRN muscle spasm 10/29/23 04/09/24 Rx #90 tabs lisinopril 20 mg tablet 20 mg PO DAILY #90 tabs 12/16/23 04/09/24 Rx meloxicam 15 mg tablet 15 mg PO DAILY #30 tabs 01/31/24 04/09/24 Rx testosterone cypionate 100 mg/mL 50 mg (0.5 mL) IM QWEEK #10 mL 03/17/24 04/09/24 Rx intramuscular oil amlodipine 2.5 mg tablet 5 mg PO BEDTIME 04/05/24 04/09/24 History hydrocodone 5 mg-acetaminophen 325 1 tab PO TID PRN pain #14 tabs 04/06/24 04/09/24 Rx mg tablet Allergies Allergy/AdvReac Type Severity Reaction Status Date / Time gluten Allergy Severe arthritis Verified 04/05/24 19:14 dulaglutide [From [facility]] AdvReac Intermediate hives, Verified 04/05/24 19:14 thyroid swelling, sinus problems, congestion. milk protein Allergy Intermediate slow, Uncoded 04/05/24 19:14 lethergic, GI upset MSG Allergy Intermediate slow, Uncoded 04/05/24 19:14 lethargic, migraine Exam Vital Signs (past 8 hours): - 04/08/24 21:43 04/08/24 22:55 04/08/24 23:56 Temperature 98.4 F 97.0 F L Pulse Rate 90 92 H 81 Respiratory Rate 20 18 Blood Pressure 144/89 H 143/89 H Pulse Oximetry 96 95 96 Oxygen Delivery Method Room Air Room Air 04/08/24 23:57 04/08/24 23:57 04/09/24 00:00 Temperature Pulse Rate 81 Respiratory Rate Blood Pressure 167/91 H 162/90 H Pulse Oximetry 97 Oxygen Delivery Method 04/09/24 00:00 04/09/24 00:20 04/09/24 00:20 Temperature Pulse Rate 82 79 Respiratory Rate Blood Pressure 175/81 H Pulse Oximetry 96 97 Oxygen Delivery Method 04/09/24 00:30 04/09/24 00:30 04/09/24 01:00 Temperature Pulse Rate 84 Respiratory Rate Blood Pressure 156/79 H 153/80 H Pulse Oximetry 95 Oxygen Delivery Method Room Air 04/09/24 01:00 Temperature Pulse Rate 79 Respiratory Rate Blood Pressure Pulse Oximetry 95 Oxygen Delivery Method Room Air Oxygen Delivery Method Room Air Narrative Exam Narrative: GENERAL: The patient is not in any acute distressed. Awake and alert. HEENT: Nonicteric sclerae, PERRLA, EOMI. Oropharynx clear. Moist mucous membranes. Conjunctivae appear well perfused. HEART: Regular rate and rhythm without murmurs. No lower extremities edema. LUNGS: Clear to auscultation bilaterally. No wheezing, crackles or rhonchi ABDOMEN: Soft, positive bowel sounds, nontender surgical wound intact no sign of active bleeding or infection. SKIN: No rash, no excessive bruising, petechiae, or purpura. NEUROLOGIC: AxO x 3. Cranial nerves II-XII intact without motor/sensory deficit. Objective ECG Impression: 12 points of ROS are negative except for what was mentioned per HPI. Labs 04/08/24 23:11 04/08/24 23:11 Labs: Laboratory Results - last 24 hr 04/08/24 23:11 WBC 8.5 RBC 6.12 H Hgb 19.0 H Hct 54.8 H MCV 89.5 MCH 31.0 MCHC 34.7 RDW 14.0 Plt Count 240 Neut % (Auto) 70.8 Lymph % (Auto) 7.1 L [place] % (Auto) 21.3 H Eos % (Auto) 0.6 L Baso % (Auto) 0.2 Neut # (Auto) 6000 Lymph # (Auto) 600 L [place] # (Auto) 1800 H Eos # (Auto) 0 Baso # (Auto) 0 Sodium 135 L Potassium 4.0 Chloride 91 L Carbon Dioxide 30 BUN 29 H Creatinine 1.12 Estimated GFR > 60 BUN/Creatinine Ratio 25.9 H Glucose 157 H Calcium 9.5 Total Bilirubin 1.0 AST 24 ALT 26 Alkaline Phosphatase 56 Total Protein 7.9 Albumin 4.7 Globulin 3.2 Albumin/Globulin Ratio 1.5 Lipase 65 Assessment & Plan Assessment & Plan narrative: Partial small bowel obstruction. Admit to medical floor as inpatient. NPO. IVF. IV antiemetics and pain control. Of note, Dr. Agee was consulted and recommended that we should startr IV steroids (as this was thought to be caused by undiagnosed Crohn's disease). Will continue IV Methylprendisolone. Appreciates Dr. Cyndie fuentes inputs and management. Dehydration. IVF. NIDDM. Glucose 150s. Hold home metformin. Monitor glucose and give SQ insulin if needed. DVT PPx SCDs Code status full code Disposition home in 2-3 days Time-Based Coding :: [TOTAL MINUTES] spent with patient and on the chart (including review of chart, obtaining history, exam, reviewing outside data, placing orders, documenting exam and treatment plan, and counseling patient) on [DATE].
[2024-04-09] MEDS: methylPREDNISolone 125 MG/2 ML VIAL 60 MG IV ×2 (04:01→21:19)
[2024-04-09] MEDS: HYDROMORPHONE 0.5 MG INJ IV ×3 (04:01→20:15)
[2024-04-09] MEDS: SODIUM CHLORIDE 0.9% 1,000 ML 100 ML IV (04:03)
[2024-04-09 06:34] LABS: Add Manual Diff / Slide Review NO; Basophils Absolute Auto 0 /uL (0-100); Basophils Percent Auto 0.2 % (0-2); Eosinophils Absolute Auto 100 /uL (0-450); Eosinophils Percent Auto 1.3 % (2-4); Hematocrit 48.6 % (41-53); Hemoglobin 16.6 g/dL (13.5-17.5); Lymphocytes Absolute Auto 500 /uL (1100-4500); Lymphocytes Percent Auto 7.4 % (25-40); Mean Corpuscular HGB Conc 34.2 % (30-36); Mean Corpuscular Hemoglobin 30.7 PG (26-34); Mean Corpuscular Volume 89.8 fL (80-100); Monocytes Absolute Auto 600 /uL (0-900); Monocytes Percent Auto 8.4 % (3-14); Neutrophils Absolute Auto 6100 /uL (1500-7000); Neutrophils Percent Auto 82.7 % (50-75); Platelet Count 201 X10^3/uL (150-400); Red Blood Cell Count 5.42 X10^6/uL (4.5-5.9); Red Cell Distribution Width 14.2 % (11.6-14.8); White Blood Cell Count 7.4 X10^3/uL (4.5-11.0)
[2024-04-09 06:45] LABS: BUN Creatinine Ratio 34.7 (6-22); Blood Urea Nitrogen 33 mg/dL (9-20); Calcium 8.3 mg/dL (8.4-10.2); Carbon Dioxide 28 mmol/L (22-32); Chloride 95 mmol/L (98-107); Estimated Glomerular Filt Rate > 60 mL/min (>60); Glucose 149 mg/dL (70-100); HEMOLYSIS < 15 (0-50); Potassium 4.3 mmol/L (3.4-5.1); Sodium 131 mmol/L (137-145)
--- NOTE | 2024-04-09 09:39 | P.CONS_ITS ---
History of Present Illness Consult details Date Patient Seen: 04/09/24 Time Patient Seen: 09:39 Chief complaint: pukey, abd swelling, s/p surgery Narrative: 48-year-old man status post recent ex lap for small bowel obstruction readmitted to the hospital for recurrent abdominal pain and emesis. Surgery was performed April 05 there was a small bowel volvulus but they primary findings of the operation were likely undiagnosed Crohn's disease given the extensive mesenteric fat creeping and wall thickening. He remained in the hospital for a few days postoperatively on IV steroids was able to tolerate diet prior to discharge home. He was not sent home on oral steroids. At admission afebrile vital signs within normal limits without leukocytosis CT abdomen pelvis demonstrates dilated loops of small bowel no intra-abdominal abscess. Meds Home Medications and Allergies Home Medications Medication Instructions Recorded Confirmed Type acetaminophen 500 mg tablet 1,000 mg PO Q6H PRN pain 03/19/19 04/09/24 History (Tylenol Extra Strength) Glucometer #1 ea 03/20/19 04/09/24 Rx blood pressure kit-extra large #1 ea 06/26/21 04/09/24 Rx blood-glucose meter #1 ea 02/28/23 04/09/24 Rx metformin 1,000 mg tablet 1,000 mg PO BID #180 tabs 07/30/23 04/09/24 Rx 1 mL syringe (disp) #1 ea 08/09/23 04/09/24 Rx needle (disp) 23 gauge 23 gauge x #100 ea 08/09/23 04/09/24 Rx 1 1/2 cyclobenzaprine 10 mg tablet 10 mg PO BEDTIME PRN muscle spasm 10/29/23 04/09/24 Rx #90 tabs lisinopril 20 mg tablet 20 mg PO DAILY #90 tabs 12/16/23 04/09/24 Rx meloxicam 15 mg tablet 15 mg PO DAILY #30 tabs 01/31/24 04/09/24 Rx testosterone cypionate 100 mg/mL 50 mg (0.5 mL) IM QWEEK #10 mL 03/17/24 04/09/24 Rx intramuscular oil amlodipine 2.5 mg tablet 5 mg PO BEDTIME 04/05/24 04/09/24 History hydrocodone 5 mg-acetaminophen 325 1 tab PO TID PRN pain #14 tabs 04/06/24 04/09/24 Rx mg tablet Allergies Allergy/AdvReac Type Severity Reaction Status Date / Time gluten Allergy Severe arthritis Verified 04/05/24 19:14 dulaglutide [From [facility]] AdvReac Intermediate hives, Verified 04/05/24 19:14 thyroid swelling, sinus problems, congestion. milk protein Allergy Intermediate slow, Uncoded 04/05/24 19:14 lethergic, GI upset MSG Allergy Intermediate slow, Uncoded 04/05/24 19:14 lethargic, migraine Exam Vital Signs (past 8 hours): - 04/09/24 02:00 04/09/24 02:00 04/09/24 02:30 Temperature Pulse Rate 76 Respiratory Rate Blood Pressure 146/77 H 154/82 H Pulse Oximetry 94 Oxygen Flow Rate 04/09/24 02:30 04/09/24 03:04 Temperature 98 F Pulse Rate 75 75 Respiratory Rate 16 Blood Pressure 140/82 Pulse Oximetry 95 96 Oxygen Flow Rate 0 Oxygen Delivery Method Room Air Oxygen Flow Rate 0 Narrative Exam Narrative: General adult man alert oriented no acute distress Abdomen soft minimally tender to palpation. Mild distention. Midline incision clean dry intact with richard. Objective Labs 04/09/24 06:05 04/09/24 06:05 Labs: Laboratory Results - last 24 hr 04/08/24 04/09/24 23:11 06:05 WBC 8.5 7.4 RBC 6.12 H 5.42 Hgb 19.0 H 16.6 Hct 54.8 H 48.6 MCV 89.5 89.8 MCH 31.0 30.7 MCHC 34.7 34.2 RDW 14.0 14.2 Plt Count 240 201 Neut % (Auto) 70.8 82.7 H Lymph % (Auto) 7.1 L 7.4 L [place] % (Auto) 21.3 H 8.4 Eos % (Auto) 0.6 L 1.3 L Baso % (Auto) 0.2 0.2 Neut # (Auto) 6000 6100 Lymph # (Auto) 600 L 500 L [place] # (Auto) 1800 H 600 Eos # (Auto) 0 100 Baso # (Auto) 0 0 Sodium 135 L 131 L Potassium 4.0 4.3 Chloride 91 L 95 L Carbon Dioxide 30 28 BUN 29 H 33 H Creatinine 1.12 0.95 Estimated GFR > 60 > 60 BUN/Creatinine Ratio 25.9 H 34.7 H Glucose 157 H 149 H Calcium 9.5 8.3 L Total Bilirubin 1.0 AST 24 ALT 26 Alkaline Phosphatase 56 Total Protein 7.9 Albumin 4.7 Globulin 3.2 Albumin/Globulin Ratio 1.5 Lipase 65 PFSH Medical History Well adult exam Preventative health care Low testosterone in male Gluten intolerance Essential hypertension (04/2021) Elevated ALT measurement Right hip pain (2017) Lumbago with sciatica, right side (2018) Chicken pox Gout (~2009) Family history of diabetes mellitus (DM) Surgical History Anesthesia History of knee surgery (~2015) Fracture (~2009) Family History Father Diabetes mellitus Hypertension Grandfather Cancer Grandmother Cancer Grandmother Stroke Social History household members: none Tobacco & Substance Use Smoking Status: Former smoker Tobacco: How many years used: 15 quit status: considering quitting (Patient declines smoking cessation handout) second hand exposure: No alcohol intake: current substance use type: does not use Assessment & Plan Assessment and plan (1) Abdominal pain: Qualifiers: Abdominal location: unspecified location Qualified Code(s): R10.9 - Unspecified abdominal pain Status: Acute Assessment & Plan narrative: 48-year-old man admitted for suspected Crohn's disease flare. -okay for diet as tolerated. -continue IV methylprednisolone -obtain recommendations from Gastroenterology. Induction therapy for inflammatory bowel disease. -needs semi-urgent follow up with GI following discharge Time-Based Coding :: [TOTAL MINUTES] spent with patient and on the chart (including review of chart, obtaining history, exam, reviewing outside data, placing orders, documenting exam and treatment plan, and counseling patient) on [DATE].
--- NOTE | 2024-04-09 10:33 | P.HP_ITS ---
History of Present Illness History of Present Illness Date Patient Seen: 04/09/24 Chief complaint: pukey, abd swelling, s/p surgery Narrative: From night doctor:48 year old male with past medical history of HTN and NIDDM on Metformin presents with abdominal pain. Of note, the patient was recently admitted here for SBO and was discharged two days ago on 04/06/24 after have a lapascopic surgical intervention by our surgeon Dr. Agee. However, per the patient's report, the patient went home and started to have some nausea, vomiting and abdominal distention the next day. The patient states today, the patient was haveing bad nausea and vomiting and was not able to keep anything down including his Metfomrin. The patient states his abdomen is more distended but did not report of pain. The patient also states he has been having loose stools but denies any GIB. The patient also states that his surgical incision site was intact without much sign of infection or bleeding. Otherwise, the patient denies any fever, chills, chest pain, shortness of breath, coughing or dysuria. In our ER, the patient was hemodynamically stable without sign of sepsis. Labs were relatively benign. CT abdomen suggested partial small bowel obstruction. Dr. Agee was consulted and recommended that medicine service can admit the patient for IV steroids (as this was thought to be caused by undiagnosed Crohn's disease). New information: The patient states he did well for about 1 day after discharge and then had recurrent symptoms of inability to pass liquid and food and having nausea after eating. The patient feels much improved after being on steroids overnight. He has had his diet advanced by surgery and is going to try a hamburger for lunch. He denies any subacute history of diarrhea, or rectal bleeding. There was no clear family history of inflammatory bowel disease. [facility] Medical History Well adult exam Preventative health care Low testosterone in male Gluten intolerance Essential hypertension (04/2021) Elevated ALT measurement Right hip pain (2017) Lumbago with sciatica, right side (2018) Chicken pox Gout (~2009) Family history of diabetes mellitus (DM) Surgical History Anesthesia History of knee surgery (~2015) Fracture (~2009) Family History Father Diabetes mellitus Hypertension Grandfather Cancer Grandmother Cancer Grandmother Stroke Social History household members: none Smoking Status: Former smoker Tobacco: How many years used: 15 quit status: considering quitting (Patient declines smoking cessation handout) second hand exposure: No alcohol intake: current substance use type: does not use Meds Home Medications and Allergies Home Medications Medication Instructions Recorded Confirmed Type acetaminophen 500 mg tablet 1,000 mg PO Q6H PRN pain 03/19/19 04/09/24 History (Tylenol Extra Strength) Glucometer #1 ea 03/20/19 04/09/24 Rx blood pressure kit-extra large #1 ea 06/26/21 04/09/24 Rx blood-glucose meter #1 ea 02/28/23 04/09/24 Rx metformin 1,000 mg tablet 1,000 mg PO BID #180 tabs 07/30/23 04/09/24 Rx 1 mL syringe (disp) #1 ea 08/09/23 04/09/24 Rx needle (disp) 23 gauge 23 gauge x #100 ea 08/09/23 04/09/24 Rx 1 1/2 cyclobenzaprine 10 mg tablet 10 mg PO BEDTIME PRN muscle spasm 10/29/23 04/09/24 Rx #90 tabs lisinopril 20 mg tablet 20 mg PO DAILY #90 tabs 12/16/23 04/09/24 Rx meloxicam 15 mg tablet 15 mg PO DAILY #30 tabs 01/31/24 04/09/24 Rx testosterone cypionate 100 mg/mL 50 mg (0.5 mL) IM QWEEK #10 mL 03/17/24 04/09/24 Rx intramuscular oil amlodipine 2.5 mg tablet 5 mg PO BEDTIME 04/05/24 04/09/24 History hydrocodone 5 mg-acetaminophen 325 1 tab PO TID PRN pain #14 tabs 04/06/24 04/09/24 Rx mg tablet Allergies Allergy/AdvReac Type Severity Reaction Status Date / Time gluten Allergy Severe arthritis Verified 04/05/24 19:14 dulaglutide [From [facility]] AdvReac Intermediate hives, Verified 04/05/24 19:14 thyroid swelling, sinus problems, congestion. milk protein Allergy Intermediate slow, Uncoded 04/05/24 19:14 lethergic, GI upset MSG Allergy Intermediate slow, Uncoded 04/05/24 19:14 lethargic, migraine Review of Systems Review of Systems Narrative: All else reviewed and otherwise unremarkable except as noted in the history and physical. Exam Vital Signs (past 8 hours): - 04/09/24 03:04 Temperature 98 F Pulse Rate 75 Respiratory Rate 16 Blood Pressure 140/82 Pulse Oximetry 96 Oxygen Flow Rate 0 Oxygen Delivery Method Room Air Oxygen Flow Rate 0 Narrative Exam Narrative: NAD, alert and oriented, fluent speech, calm. Normocephalic skull, EOMI, anicteric sclera, symmetric pupils. Oropharynx unremarkable, no droop. Neck supple, midline trachea, no adenopathy. Lungs clear, normal rate and effort. Heart regular, no murmur gallop or rub. Abdomen is soft, non distended and non tender. Extremities are free of edema. Skin is free of rash or lesions. Joints are not swollen or deformed. Judgment appears to be normal. Objective Imaging CT scan - abdomen: Radiologist's impression: Small bowel obstruction. Suspected transition point in the right abdomen. No pneumoperitoneum. Labs 04/09/24 06:05 04/09/24 06:05 Labs: Laboratory Results - last 24 hr 04/08/24 04/09/24 23:11 06:05 WBC 8.5 7.4 RBC 6.12 H 5.42 Hgb 19.0 H 16.6 Hct 54.8 H 48.6 MCV 89.5 89.8 MCH 31.0 30.7 MCHC 34.7 34.2 RDW 14.0 14.2 Plt Count 240 201 Neut % (Auto) 70.8 82.7 H Lymph % (Auto) 7.1 L 7.4 L [place] % (Auto) 21.3 H 8.4 Eos % (Auto) 0.6 L 1.3 L Baso % (Auto) 0.2 0.2 Neut # (Auto) 6000 6100 Lymph # (Auto) 600 L 500 L [place] # (Auto) 1800 H 600 Eos # (Auto) 0 100 Baso # (Auto) 0 0 Sodium 135 L 131 L Potassium 4.0 4.3 Chloride 91 L 95 L Carbon Dioxide 30 28 BUN 29 H 33 H Creatinine 1.12 0.95 Estimated GFR > 60 > 60 BUN/Creatinine Ratio 25.9 H 34.7 H Glucose 157 H 149 H Calcium 9.5 8.3 L Total Bilirubin 1.0 AST 24 ALT 26 Alkaline Phosphatase 56 Total Protein 7.9 Albumin 4.7 Globulin 3.2 Albumin/Globulin Ratio 1.5 Lipase 65 Assessment & Plan Assessment & Plan narrative: 1. Recent partial small bowel obstruction. Present on admission and active. 2. Volume depletion. Present on admission and active. 3. NIDDM. Present on admission and active. 4. Question of inflammatory bowel disease. Present on admission and possibly active. PLAN: -discuss with Dr. Agee regarding need for colonoscopy or sigmoidoscopy with biopsy to prove inflammatory bowel disease. Dr. Agee notes that the changes appear to be limited to the small bowel and that colonoscopy may be low yield. -discuss with Gastroenterology. Needs outpatient follow up in plan. -continue IV fluids. -monitor glucose, correctional lispro. -advance diet, regular diet was ordered by surgery this morning. -Glucose 150s. Hold home metformin. Monitor glucose and give SQ insulin if needed. DVT PPx SCDs TR: 04/10. Code status full code Time-Based Coding :: [TOTAL MINUTES] spent with patient and on the chart (including review of chart, obtaining history, exam, reviewing outside data, placing orders, documenting exam and treatment plan, and counseling patient) on [DATE].
--- NOTE | 2024-04-09 13:00 | PC.NURSE ---
Addendum entered by Nancy Peguero R.N. 04/09/24 17:29: Patient was doing better this morning, trialed on oral pain medication and he became nauseated. Patient also started on regular food today. He refused his metformin this evening, and just asked for pain medication. Given 0.5mg of iv dilaudid, . He tolerated the oral medication for about 1.5 hours and then got the nausea. He is resting now and wants to try and eat his dinner. Original Note: Patient is doing well with his general diet, his blood sugar was [address] Agee ordered patients Metformin, will put this order in now. He denies pain or discomfort at this time. ML incision well approximated and wnl.
[2024-04-09] MEDS: OXYCODONE IR 5 MG TABLET PO (14:11)
[2024-04-09] MEDS: ONDANSETRON 4 MG/2 ML INJ IV ×2 (15:31)
[2024-04-10] MEDS: HYDROMORPHONE 0.5 MG INJ IV ×4 (00:29→15:27)
[2024-04-10] MEDS: OXYCODONE IR 5 MG TABLET PO ×3 (02:26→21:09)
[2024-04-10] MEDS: ONDANSETRON 4 MG ODT PO (02:27)
[2024-04-10] MEDS: SODIUM CHLORIDE 0.9% 1,000 ML 100 ML IV (03:55)
[2024-04-10] MEDS: SIMETHICONE 80 MG TABLET PO ×3 (06:04→21:09)
[2024-04-10] MEDS: PANTOPRAZOLE 40 MG VIAL IV (06:04)
[2024-04-10 07:00] VITALS: BP 146/96; PULSE 71; RESP 16; TEMP 36; O2SAT 96
[2024-04-10] MEDS: ONDANSETRON 4 MG/2 ML INJ IV (08:26)
[2024-04-10] MEDS: methylPREDNISolone 125 MG/2 ML VIAL 60 MG IV ×2 (08:26→21:09)
[2024-04-10] MEDS: ACETAMINOPHEN 325 MG TABLET 650 MG PO ×2 (08:26→21:09)
[2024-04-10] MEDS: METFORMIN HCL 500 MG TABLET 1000 MG PO ×2 (08:26→17:25)
--- NOTE | 2024-04-10 11:09 | P.PN_ITS ---
Subjective Subjective Interval history: Subjective: He had some nausea and vomiting yesterday after lunch. He feels little bit better today. He had a small amount he this morning. Some flatus last night, no bowel movement overnight. He would transient distention of the abdomen which is improved. Exam Vital Signs (past 8 hours): - 04/10/24 07:00 Temperature 96.8 F L Pulse Rate 71 Respiratory Rate 16 Blood Pressure 146/96 H Pulse Oximetry 96 Oxygen Flow Rate 0 Oxygen Delivery Method Room Air Oxygen Flow Rate 0 Narrative Exam Narrative: NAD, alert and oriented. Fluent speech. Lungs are clear, normal rate and effort. Heart is regular, no murmur gallop or rub. Abdomen is soft, non distended. Extremities are free of edema. Objective Labs 04/09/24 06:05 04/09/24 06:05 [facility] Medical History Well adult exam Preventative health care Low testosterone in male Gluten intolerance Essential hypertension (04/2021) Elevated ALT measurement Right hip pain (2017) Lumbago with sciatica, right side (2018) Chicken pox Gout (~2009) Family history of diabetes mellitus (DM) Surgical History Anesthesia History of knee surgery (~2015) Fracture (~2009) Family History Father Diabetes mellitus Hypertension Grandfather Cancer Grandmother Cancer Grandmother Stroke Social History household members: none Smoking Status: Former smoker Tobacco: How many years used: 15 quit status: considering quitting (Patient declines smoking cessation handout) second hand exposure: No alcohol intake: current substance use type: does not use Assessment & Plan Assessment & Plan narrative: 1. Recent partial small bowel obstruction. Present on admission and active. 2. Volume depletion. Present on admission and active. 3. NIDDM. Present on admission and active. 4. Question of inflammatory bowel disease. Present on admission and possibly active. PLAN: -continue steroids, advance diet. -monitor sugars. TR: 04/11. Time-Based Coding :: [TOTAL MINUTES] spent with patient and on the chart (including review of chart, obtaining history, exam, reviewing outside data, placing orders, documenting exam and treatment plan, and counseling patient) on [DATE].
--- NOTE | 2024-04-10 15:29 | CM.DANOTE ---
Discharge Planning/Care Management CM Discharge Assessment Start: 04/10/24 15:25 Freq: Status: Active Protocol: Document 04/10/24 15:25 HONORIO (Rec: 04/10/24 15:29 HONORIO [id number]) Discharge Planning Assessment Assigned President [employer] [place] JOSE Morgan DPASHLEY/Assigned Designee Name mother Cardenas Contact Information [phone] Advance Directives? No History Provided By Patient,Medical Record Prior Living Arrangements Apartment/Condo Household Members none Type of transporation used prior to Drives own vehicle admit Independent with ADL's Yes Is patient alert and oriented? Yes Barriers to Discharge No Comment Patient with Recent partial small bowel obstruction, provider planning to continue steroids, advance diet and monitor sugars. Patient thought to be at cognitive and functional baseline and will return home when medically cleared to do so. No needs from this CM team identified. CM team will monitor in case any DC needs or concerns arise . Discharge Plan Home Transportation Arrangement self in POV Referrals Initiated None needed
--- NOTE | 2024-04-10 16:09 | PM.PN.1 ---
Subjective Subjective Date Patient Seen: 04/10/24 Time Patient Seen: 16:09 Interval history: Abdominal pain nausea emesis overnight. Has since had a bowel movement feels significantly better and is tolerating small amount of food. Exam Vital Signs (past 8 hours): Oxygen Delivery Method Room Air Oxygen Flow Rate 0 Narrative Exam Narrative: General adult man alert oriented no acute distress Abdomen lower midline incision clean dry intact with richard. Surrounding ecchymosis. Objective Labs 04/09/24 06:05 04/09/24 06:05 PFS Medical History Well adult exam Preventative health care Low testosterone in male Gluten intolerance Essential hypertension (04/2021) Elevated ALT measurement Right hip pain (2017) Lumbago with sciatica, right side (2018) Chicken pox Gout (~2009) Family history of diabetes mellitus (DM) Surgical History Anesthesia History of knee surgery (~2015) Fracture (~2009) Family History Father Diabetes mellitus Hypertension Grandfather Cancer Grandmother Cancer Grandmother Stroke Social History household members: none Smoking Status: Former smoker Tobacco: How many years used: 15 quit status: considering quitting (Patient declines smoking cessation handout) second hand exposure: No alcohol intake: current substance use type: does not use Assessment & Plan Assessment & Plan narrative: 48-year-old man with suspected inflammatory bowel flare. -need GI recommendations for inflammatory bowel disease likely Crohn's induction -needs follow-up appointment with Gastroenterology shortly after discharge. -diet as tolerated Time-Based Coding :: [TOTAL MINUTES] spent with patient and on the chart (including review of chart, obtaining history, exam, reviewing outside data, placing orders, documenting exam and treatment plan, and counseling patient) on [DATE].
[2024-04-10 19:00] VITALS: BP 155/93; PULSE 68; RESP 18; TEMP 37.2; O2SAT 97
[2024-04-11] MEDS: OXYCODONE IR 5 MG TABLET PO (01:22)
[2024-04-11] MEDS: SIMETHICONE 80 MG TABLET PO (04:54)
[2024-04-11] MEDS: ACETAMINOPHEN 325 MG TABLET 650 MG PO (04:57)
--- NOTE | 2024-04-11 09:07 | PM.DS.1 ---
History of Present Illness History of Present Illness Chief complaint: pukey, abd swelling, s/p surgery Narrative: From night doctor:48 year old male with past medical history of HTN and NIDDM on Metformin presents with abdominal pain. Of note, the patient was recently admitted here for SBO and was discharged two days ago on 04/06/24 after have a lapascopic surgical intervention by our surgeon Dr. Agee. However, per the patient's report, the patient went home and started to have some nausea, vomiting and abdominal distention the next day. The patient states today, the patient was haveing bad nausea and vomiting and was not able to keep anything down including his Metfomrin. The patient states his abdomen is more distended but did not report of pain. The patient also states he has been having loose stools but denies any GIB. The patient also states that his surgical incision site was intact without much sign of infection or bleeding. Otherwise, the patient denies any fever, chills, chest pain, shortness of breath, coughing or dysuria. In our ER, the patient was hemodynamically stable without sign of sepsis. Labs were relatively benign. CT abdomen suggested partial small bowel obstruction. Dr. Agee was consulted and recommended that medicine service can admit the patient for IV steroids (as this was thought to be caused by undiagnosed Crohn's disease). New information: The patient states he did well for about 1 day after discharge and then had recurrent symptoms of inability to pass liquid and food and having nausea after eating. The patient feels much improved after being on steroids overnight. He has had his diet advanced by surgery and is going to try a hamburger for lunch. He denies any subacute history of diarrhea, or rectal bleeding. There was no clear family history of inflammatory bowel disease. Discharge Providers Provider Date of admission: 04/09/24 01:58 Discharge Date: 04/11/24 Primary care physician: Say Ronquillo DO Consults: General surgery, Dr. Agee. Discharge provider: Favio Bui MD Summary Hospital Course Discharge Diagnosis: 1. Recent partial small bowel obstruction. Present on admission and active. 2. Volume depletion. Present on admission and active. 3. NIDDM. Present on admission and active. 4. Question of inflammatory bowel disease. Present on admission and possibly active. Hospital Course: The patient was admitted with symptoms consistent with recurrent partial small bowel obstruction. The patient's operative findings looked suspicious for Crohn's disease, limited to the small bowel. The surgeon did not believe colonoscopy would initially be indicated due to the location of the lesions on laparoscopy. The patient was treated with IV steroids for a presumed inflammatory bowel disease exacerbation and did have improvement of his symptoms and was then able to eat. The patient has primary care in [place] and has a appointment scheduled for 916. He was asked to set up a referral through his primary care at this appointment. This could either be with [facility] [place] or Located within [facility] in [place]. He had no significant complaints of diarrhea and no rectal bleeding. Status at Discharge Cognitive/behavioral status at discharge: oriented Functional status at discharge: independent ambulation Overall status at discharge: patient is back to baseline Time Spent with Patient Time spent: Greater than 30 minutes Exam Vital Signs (past 8 hours): Oxygen Delivery Method Room Air Oxygen Flow Rate 0 Narrative Exam Narrative: NAD, alert and oriented. Fluent speech. Lungs are clear, normal rate and effort. Heart is regular, no murmur gallop or rub. Abdomen is soft, non distended. Extremities are free of edema. Objective Imaging Multiple studies:: Radiologist's impression: CT abdomen and pelvis (04/08): FINDINGS: Image quality: Diagnostic. Lower Chest: No significant findings. ABDOMEN: Liver: No solid mass. Gallbladder: No radiopaque gallstones or wall thickening. Biliary ducts: No biliary dilation. Pancreas: No ductal dilation. Spleen: Size is within normal limits. Adrenal Glands: No adrenal nodules. Kidneys and Ureters: No hydronephrosis. No solid mass. No complex renal cystic lesion which requires follow up. Stomach and Bowel: Small bowel obstruction. Suspected transition point in the right abdomen, (11/15). No pneumatosis intestinalis. No fluid collection. Stomach is within normal limits. Colon is within normal limits. Normal appendix. Peritoneum: No abnormal intraperitoneal fluid. No free air. Mesenteric edema in the mid abdomen. Somewhat shotty appearing mesenteric lymph nodes. Ventral Wall: No significant ventral hernia. Midline staple line. Scant subcutaneous gas at the left abdominal wall. Abdominal Nodes: No retroperitoneal or mesenteric adenopathy by size criteria. Vessels: Aorta and inferior vena cava are normal in size. PELVIS: Pelvic Organs: Trace free fluid in the pelvis. Bladder: No bladder wall thickening, accounting for underdistention. Pelvic Nodes: No enlarged lymph nodes. Miscellaneous: No inguinal hernias are seen. Bones: No aggressive osseous abnormality. IMPRESSION: Small bowel obstruction. Suspected transition point in the right abdomen. Chest x-ray (04/05): Enteric tube is now within the stomach. CT abdomen pelvis (04/05): Small-bowel obstruction with a focal transition point in the right lower quadrant and no evidence of perforation. Labs 04/09/24 06:05 04/09/24 06:05 [facility] Medical History Well adult exam Preventative health care Low testosterone in male Gluten intolerance Essential hypertension (04/2021) Elevated ALT measurement Right hip pain (2017) Lumbago with sciatica, right side (2017) Chicken pox Gout (~2009) Family history of diabetes mellitus (DM) Surgical History Anesthesia History of knee surgery (~2015) Fracture (~2009) Family History Father Diabetes mellitus Hypertension Grandfather Cancer Grandmother Cancer Grandmother Stroke Social History household members: none Smoking Status: Former smoker Tobacco: How many years used: 15 quit status: considering quitting (Patient declines smoking cessation handout) second hand exposure: No alcohol intake: current substance use type: does not use Discharge Assessment & Plan Assessment and Plan Assessment: 1. Recent partial small bowel obstruction. Present on admission and active. 2. Volume depletion. Present on admission and active. 3. NIDDM. Present on admission and active. 4. Question of inflammatory bowel disease. Present on admission and possibly active. Plan of Treatment: Discharge home with prednisone 40 daily, no effort 2 weeks. The patient will have some hyperglycemia with his diabetes. He was a follow up appointment with his doctor on April 13 and needs a referral to local gastroenterology. This can either be [facility] in [place] or [facility]. Discharge Plan Discharge Plan Patient Disposition: Home Provider Discharge Comment: Stable for discharge with PCP FU Saturday and GI referral. Discharge orders & Medications Prescriptions: New prednisone 20 mg tablet 40 mg PO DAILY Qty: 60 0RF Continued (DME) blood-glucose meter Misc See Rx Instructions .Route Qty: 1 0RF Rx Instructions: Use to test blood sugars BID metformin 1,000 mg tablet 1,000 mg PO BID Qty: 180 3RF Patient Comments: Takes in AM when able to tolerate PO cyclobenzaprine 10 mg tablet 10 mg PO BEDTIME PRN (Reason: muscle spasm) Qty: 90 1RF Rx Instructions: do not drive during treatment lisinopril 20 mg tablet 20 mg PO DAILY Qty: 90 1RF Patient Comments: Takes in AM when able to tolerate PO Rx Instructions: Take once in the morning meloxicam 15 mg tablet 15 mg PO DAILY Qty: 30 2RF Patient Comments: Takes in AM when able to tolerate PO testosterone cypionate 100 mg/mL oil 50 mg IM QWEEK Qty: 10 0RF Rx Instructions: Discard after 28 days acetaminophen [Tylenol Extra Strength] 500 mg tablet 1,000 mg PO Q6H PRN (Reason: pain) (DME) Glucometer Qty: 1 0RF Dose Instruction: As directed Rx Instructions: Check blood sugar twice a day. Once in the morning (fasting) and in the evening (random) (DME) blood pressure kit-extra large Kit See Rx Instructions .Route Qty: 1 0RF Rx Instructions: As directed (DME) needle (disp) 23 gauge 23 gauge x 1 1/2 needle See Rx Instructions .Route Qty: 100 1RF Rx Instructions: Use to inject Testosterone weekly (DME) 1 mL syringe (disp) See Rx Instructions .Route .MEDSUPPLY Qty: 1 0RF Rx Instructions: Use to inject testosterone once a week Dispense quantity available per insurance amlodipine 2.5 mg tablet 5 mg PO BEDTIME hydrocodone-acetaminophen 5-325 mg tablet 1 tab PO TID PRN (Reason: pain) Qty: 14 0RF Patient Comments: Perscribed after last surgery, not taking (took a few times, but vomited them up) Follow up/Referrals: Say Ronquillo, [Primary Care Provider] - Discharge Health Status Multidrug resistant organism: No MDRO Diet/Activity/Treatments Diet: Carb-consistent/Diabetic Visit Report/Discharge Packet Instructions: DI for Small Bowel Obstruction Stand Alone Forms: Patient Portal/API Discharge Data Primary Care Provider: Say Ronquillo Quality MIPS - DC The patient has a history of heart transplant or Left Ventricular Assist Device (LVAD). If yes, STOP here.: No The patient has current or prior documentation of left ventricular ejection fraction (LVEF) less than or equal to 40%, or moderate or severely depressed left ventricular systolic function.: No A. The patient was prescribed or already taking an Angiotensin-Converting Enzyme (SARAH) Inhibitor, or Angiotensin Receptor Kirstie (ARB).: No
[2024-04-11] MEDS: METFORMIN HCL 500 MG TABLET 1000 MG PO (09:26)
[2024-04-11] MEDS: methylPREDNISolone 125 MG/2 ML VIAL 60 MG IV (09:26)
--- NOTE | 2024-04-11 11:17 | CM.DPNOTE ---
DC Note Discharge home today with close outpatient follow up. No needs from this CM team identified. Patient will see his PCP on Saturday and can discuss GI referral. HONORIO
== END 2024-04-11 11:25 | disposition home or self-care (01) | DRG 386 ==
LOC: ED 04-09 01:58 → AC 04-09 02:00
PROVIDERS: Admitting Provider Internal Medicine; Emergency Provider Emergency Medicine; PCP Family Medicine; Referring Provider Emergency Medicine; Visit Provider Internal Medicine
DX: K50.012 Crohn's disease of small intestine with intestinal obstruction (principal); E87.1 Hypo-osmolality and hyponatremia; E11.9 Type 2 diabetes mellitus without complications; I10 Essential (primary) hypertension; E86.0 Dehydration; Z79.84 Long term (current) use of oral hypoglycemic drugs; Z87.891 Personal history of nicotine dependence
CPT/HCPCS: 36415; 74177; 80048; 80053; 82962; 83690; 85025; 96361; 96374; 96375; 99284; 99285; J1170; J1885; J2270; J2405; J2470; J2919